=== PATIENT | male | born 1945 | race African-American/Black ===

== ENCOUNTER → 2016-09-09 | Outpatient (CLI) | payer OTHER ==
[~2016-09-09] MED LIST: ASCO500T PO; CYAN1000VL IM; DILT120C57 PO; DRIS50002 PO; FERR5MLUD PO; HYZA50TA2 PO; LOSA100T37 PO; METF1000 PO; OMEP20CA3 PO; PYRI25TA3 PO; SIMV20TA2 PO
[2016-09-09 15:41] LABS: ANION GAP 7 MEQ/L (8-16); BLOOD UREA NITROGEN 33 MG/DL (7-18); CALCIUM LEVEL 8.6 MG/DL (8.8-10.2); CARBON DIOXIDE LEVEL 30 MEQ/L (21-32); CHLORIDE LEVEL 105 MEQ/L (98-107); CREATININE FOR GFR 1.41 MG/DL (0.70-1.30); GLOMERULAR FILTRATION RATE > 60.0 (>49); GLUCOSE, FASTING 229 MG/DL (80-110); SODIUM LEVEL 142 MEQ/L (136-145)
== END ==
LOC: M LAB 14:26
PROVIDERS: ATTEND Nurse Practitioner Women's Health
DX: I10 Essential (primary) hypertension (principal); R97.20 Elevated prostate specific antigen [PSA]

== ENCOUNTER → 2016-09-11 | Outpatient (CLI) | payer OTHER ==
--- NOTE | 2016-09-12 10:21 | REP ---
Multiparametric prostate MRI without and with IV gadolinium: History: Elevated PSA. Comparisons: May 25, 2015. TECHNIQUE: Using a phased array surface coil, small field of view imaging was acquired using T2-weighted scans in the axial, coronal, and sagittal imaging planes. Small field of view diffusion-weighted sequences are acquired. Small field of view axial T1-weighted scans are acquired dynamically after the intravenous administration of 18 mL of ProHance. Prostate MRI findings: There is no evidence of skeletal metastatic disease or pelvic or inguinal lymphadenopathy. 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 This appears unchanged. Urinary bladder duncan are smooth. Seminal vesicles remain unremarkable. There is nodular enlargement of the central gland in the prostate. Prostate glandular dimensions are 5.7 x 4.4 x 5.7 cm. Calculated glandular volume is 66.12 ml. This is quite similar to the prior study. There are four focal lesions identified on multiparametric MRI scanning of the prostate as outlined to follow: Lesion #1 is in the left apical transition zone measuring 2.0 x 1.3 x 1.3 cm, 2.37 ml. This is characterized by a discrete homogeneous low signal intensity on T2-weighted scans with focal areas of reduced ADC and a type 3 enhancement curve. Clinically significant cancer is equivocal. Lesion #2 is in the left base transition zone measuring 2.1 x 1.8 x 1.0 cm, 1.69 ml volume. This is also discrete homogeneous low signal intensity focus on T2-weighted scans. It has intermediate diffusion weighted characteristics and a type 3 enhancement curve. Clinically significant cancer is equivocal. Lesion #3 is in the right mid anterior peripheral zone and right mid anterior transition zone measuring 2.0 x 1.2 x 1.0 cm, calculated volume 1.26 ml. It is a homogeneous low T2 signal intensity focus confined to the prostate with no reduction in ADC and a type 2 enhancement curve. Clinically significant cancer is equivocal. Lesion 4 is located in the left mid posterior transition zone with a calculated volume of 1.29 ml and dimensions of 1.8 x 1.4 x 1.0 cm. It is low signal intensity discrete focus on T2-weighted scans. Intermediate diffusion-weighted characteristics and type 3 enhancement curve. These targets are similar but not identical to those outlined on the May 25, 2015 study. Impression: 1. 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 2. Enlarged multinodular prostate gland. There are four targets identified on multiparametric prostate MR. These are outlined and submitted for MR ultrasound fusion, biopsy consideration. No extraprostatic involvement or evidence of bony metastatic disease. Signed by Felix Madrigal MD 09/12/2016 12:01 P
== END ==
LOC: M RAD 17:05
PROVIDERS: ATTEND Urology
DX: R97.20 Elevated prostate specific antigen [PSA] (principal); M87.051 Idiopathic aseptic necrosis of right femur

== ENCOUNTER → 2016-09-15 | Outpatient (CLI) | payer OTHER ==
[~2016-09-15] MED LIST changes: -DILT120C57 PO; +DILT120C82 PO; +JARD1TAB3 PO; +LOSA25TA8 PO; +OSEL75CA PO; +PYRI50TA2 PO
--- NOTE | 2016-09-15 11:45 | REP ---
Prostate sonography: History: Elevated PSA. MR ultrasound fusion biopsy. Sonographic findings: Trans rectal prostate sonography demonstrates unremarkable seminal vesicles. Prostate gland is heterogeneously enlarged with calcifications and cystic changes noted. Glandular dimensions are measured at 5.6 x 4.7 x 5.6 cm with a calculated glandular volume of 77.1 ml. Transrectal sonographic guidance provided to Dr. Quintero who performed trans rectal ultrasound guided needle biopsy procedure . Signed by Felix Madrigal MD 09/15/2016 11:36 A
== END | disposition home or self-care (01) ==
LOC: M SMT PRO 08:24
PROVIDERS: ATTEND Urology
DX: R97.20 Elevated prostate specific antigen [PSA] (principal)
CPT/HCPCS: 55700; 76872; 76942; 88344; G0416

== ENCOUNTER 2016-09-20 18:30 | Inpatient (IN) | payer OTHER ==
[~2016-09-20] VITALS: Ht 185.4 cm; Wt 90.0 kg
[~2016-09-20 18:30] MED LIST changes: -JARD1TAB3 PO; -LOSA25TA8 PO; -OSEL75CA PO; -PYRI50TA2 PO
[2016-09-20 19:57] LABS: BASO % 0.6 % (0.0-1.0); EOS % 1.1 % (0.0-3.0); LARGE UNSTAINED CELL # 0.1 K/mm3 (0.0-0.4); LARGE UNSTAINED CELL % 3.8 % (0.0-4.0); LYMPH # 1.1 K/mm3 (1.5-4.5); MEAN CORPUSCULAR HEMOGLOBIN 32.1 pg (27.0-33.0); MEAN CORPUSCULAR HGB CONC 33.5 g/dl (32.0-36.5); MEAN CORPUSCULAR VOLUME 95.7 fl (80.0-96.0); MONO # 0.5 K/mm3 (0.0-0.8); MONO % 16.3 % (0.0-5.0); NEUTROPHILS # 1.4 K/mm3 (1.8-7.7); NEUTROPHILS % 45.1 % (36.0-66.0); PLATELET COUNT, AUTOMATED 126 k/mm3 (150-450); RED CELL DISTRIBUTION WIDTH 12.3 % (11.5-14.5)
--- NOTE | 2016-09-20 20:00 | REPUSA ---
CLINICAL HISTORY: Syncope. TECHNIQUE: Multiple axial CT images were obtained through the brain without IV contrast material. COMMENTS: There is normal configuration of sella turcica. There are no intra or extra-axial collections. There is no mass effect or midline shift. There is no evidence of hematoma formation. No hydrocephalus is p resent. The ventricles are symmetrical. Bilateral basal ganglia calcifications are present. There is diffuse age-appropriate cerebellar and cerebral atrophy with proportionally dilated ventricl es and cortical sulci. There are bilateral periventricular and subcortical white matter hypolucencies compatible with mild c hronic microvascular disease. Otherwise, no significant focal abnormalities are seen either in the posterior fossa or supratentoria l compartment. IMPRESSION: 1. Age-appropriate cerebellar and cerebral atrophy. 2. Mild chronic microvascular disease. 3. No evidence of acute intracranial pathology. Thank you for your kind referral of this patient.
[2016-09-20 20:19] LABS: ANION GAP 9 MEQ/L (8-16); BLOOD UREA NITROGEN 38 MG/DL (7-18); CALCIUM LEVEL 7.9 MG/DL (8.8-10.2); CARBON DIOXIDE LEVEL 29 MEQ/L (21-32); CHLORIDE LEVEL 104 MEQ/L (98-107); GLOMERULAR FILTRATION RATE 51.8 (>49); GLUCOSE, FASTING 147 MG/DL (80-110); POTASSIUM SERUM 3.6 MEQ/L (3.5-5.1); SODIUM LEVEL 142 MEQ/L (136-145)
[2016-09-20] MEDS ORDERED: PYRI50TA2 PO (21:49)
[2016-09-20] MEDS ORDERED: JARD1TAB3 PO (21:49)
[2016-09-20] MEDS ORDERED: NS 1,000 ML IV SCH (21:50)
[2016-09-20] MEDS ORDERED: DEXTROSE 50% 50 ML SYRINGE IV PRN (22:00)
[2016-09-20] MEDS ORDERED: GLUCOSE 4 GM CHEW TABLET PO PRN (22:00)
[2016-09-20] MEDS ORDERED: GLUCAGON FOR INJ 1 MG VIAL (J1610) SC PRN (22:00)
[2016-09-20] MEDS ORDERED: ACETAMINOPHEN TAB 650MG DOSE (2X325MG) PO PRN (22:00)
[2016-09-20] MEDS ORDERED: ONDANSETRON 4MG/2ML VIAL (J2405) IV PRN (22:00)
[2016-09-20 22:18] LABS: ALBUMIN 3.3 GM/DL (3.2-5.2); ALKALINE PHOSPHATASE 66 U/L (45-117); ALT/SGPT 38 U/L (12-78); AST/SGOT 47 U/L (15-37); BILIRUBIN,DIRECT 0.2 MG/DL (0.0-0.2); BILIRUBIN,TOTAL 0.8 MG/DL (0.2-1.0); MAGNESIUM LEVEL 2.4 MG/DL (1.8-2.4); TOTAL PROTEIN 6.6 GM/DL (6.4-8.2)
[2016-09-20 22:34] LABS: REASON FOR REVIEW PANCYTOPENIA
[2016-09-20 22:43] VITALS: BP 120/58
--- NOTE | 2016-09-20 22:43 | EDDOCDS ---
Nurse's Notes [facility] Name: Ronnell Smallwood Age: 71 yrs Sex: Male : 1945 Arrival Date: 09/20/2016 Time: 18:30 Bed 11 Private MD: Annel Chester A Diagnosis: Syncope and collapse;Hypotension;Pancytopenia Presentation: 09/20 18:36 Presenting complaint: Patient states: Syncopal episode at home at 1430 today c/o pain mlb1 left knee. Adult Sepsis Screening: The patient does not have new or worsening altered mentation. Patient's respiratory rate is less than 22. Systolic blood pressure is greater than 100. Patient has a qSOFA score of 0- Negative Sepsis Screen. Suicide/Homicide risk assessment- the patient denies having any suicidal and/or homicidal ideations and does not present with any other emotional, behavioral or mental health complaints. 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 Transition of care: patient was not received from another setting of care. 18:36 Acuity: ANGEL Level 3 mlb1 18:36 Method Of Arrival: Walkin/Carried/Asstd mlb1 Triage Assessment: 18:39 General: Appears in no apparent distress, Behavior is appropriate for age, cooperative. mlb1 Pain: Location: lateral aspect of left knee Pain currently is 8 out of 10 on a pain scale. Neurological: Level of Consciousness is awake, alert, Oriented to person, place, time. Historical: - Allergies: no known allergies; - Home Meds: 1. aspirin 81 mg Oral TbEC once daily on hold 2. Drisdol 50,000 unit Oral cap every 2 weeks 3. Hyzaar 100-12.5 mg Oral tab 1 tab once daily 4. Tiazac 120 mg Oral cpER 1 cap once daily 5. vitamin b12 inj monthly 6. Vitamin B-6 100 mg Oral tab - PMHx: Anemia; Diabetes - NIDDM: controlled; Hypertension; Pyelonephritis; - PSHx: repair of stomach ulcers; - Social history: Smoking status: Patient states former smoker of tobacco. No barriers to communication noted, The patient speaks fluent Bhutanese, Speaks appropriately for age. - Family history: Not pertinent. - : The pt / caregiver states he / she is not on anticoagulants. Home medication list is obtained from the patient. - Exposure Risk Screening:: None identified. Screenin:41 Screening information is obtained from the patient. Fall risk: No risks identified. kas2 Assistance ADL's: requires no assistance with activities of daily living. Abuse/DV Screen: The patient / caregiver reports he/she is: not in a situation that causes fear, pain or injury. Nutritional screening: No deficits noted. Advance Directives: Currently, there is no health care proxy. There is no active DNR order. There is no living will. There is no Power of Screen Repairer Crusher. home support is adequate. Assessment: 19:35 General: Patient gone to CT scan via stretcher with tech.. kas2 19:40 General: Appears in no apparent distress, comfortable, well nourished, well groomed, kas2 Behavior is appropriate for age, cooperative. Pain: Denies pain. Neurological: Level of Consciousness is awake, alert, Oriented to person, place, time, Food Service Sales Representatives are equal bilaterally Moves all extremities. Speech is normal, Facial symmetry appears normal, Pupils are PERRLA. Cardiovascular: Capillary refill < 3 seconds Heart tones S1 S2 present Rhythm is sinus rhythm No ectopy. Respiratory: Airway is patent Respiratory effort is even, unlabored, Respiratory pattern is regular, symmetrical, Breath sounds are clear bilaterally. Derm: Skin is intact, is healthy with good turgor, Skin is dry, Skin temperature is warm. 20:14 General:. kas2 20:15 General: Patient back from CT scan via stretcher with tech. Resettled in bed. Patient kas2 denies pain or discomfort at this time. No apparent distress. Family at bedside. Call preciado within reach. Will continue to monitor.. 21:25 General: Patient laying in bed with family at bedside. No apparent distress noted. kas2 Patient denies pain or discomfort at this time. Airway patent and respiratory pattern even and unlabored. Call preciado within reach. Will continue to monitor.. 22:13 General: Appears in no apparent distress, comfortable, Behavior is appropriate for age, kas2 cooperative. Pain: Denies pain. Neurological: Level of Consciousness is awake, alert, Oriented to person, place, time. Cardiovascular: Capillary refill < 3 seconds Heart tones S1 S2 present Rhythm is sinus rhythm No ectopy. Respiratory: Airway is patent Respiratory effort is even, unlabored, Respiratory pattern is regular, symmetrical, Breath sounds are clear bilaterally. Derm: Skin is intact, is healthy with good turgor, Skin is dry, Skin temperature is warm. Vital Signs: 18:32 BP 95 / 59; Pulse 87; Resp 18 S; Temp 98.6(O); Pulse Ox 95% on R/A; Weight 92.99 kg gr2 (R); Height 6 ft. 1 in. (185.42 cm) (R); Pain 7/10; 18:42 BP 100 / 56 (auto/); kas2 18:45 Pulse 80 MON; Pulse Ox 95% ; kas2 18:45 Resp 18; Temp 98.2(O); Pain 0/10; kas2 18:57 BP 110 / 58 (auto/); kas2 18:57 Pulse 84 MON; Pulse Ox 93% ; kas2 19:12 BP 112 / 60 (auto/); kas2 19:12 Pulse 88 MON; Pulse Ox 96% ; kas2 19:27 BP 108 / 61 (auto/); kas2 19:27 Pulse 82 MON; Pulse Ox 96% ; kas2 19:42 BP 99 / 50 (auto/); kas2 19:42 Pulse 84 MON; Pulse Ox 94% ; kas2 19:57 BP 100 / 59 (auto/); kas2 19:57 Pulse 80 MON; Pulse Ox 93% ; kas2 20:12 BP 98 / 54 RA Supine; Pulse 77; Resp 18; Temp 96.2; Pulse Ox 92% on R/A; Pain 0/10; kas2 20:12 BP 83 / 53 RA Sitting; Pulse 86; Resp 18; Pulse Ox 94% on R/A; kas2 20:12 BP 87 / 54 RA Standing; Pulse 95; Resp 18; Pulse Ox 97% on R/A; kas2 20:12 BP 101 / 60 (auto/); kas2 20:12 Pulse 76 MON; Pulse Ox 93% ; kas2 20:27 BP 101 / 59 (auto/); kas2 20:27 Pulse 74 MON; Pulse Ox 99% ; kas2 20:42 BP 101 / 59 (auto/); kas2 20:42 Pulse 74 MON; Pulse Ox 92% ; kas2 20:57 BP 106 / 58 (auto/); kas2 20:57 Pulse 74 MON; Pulse Ox 96% ; kas2 21:12 BP 111 / 61 (auto/); kas2 21:12 Pulse 74 MON; Pulse Ox 95% ; kas2 21:27 BP 113 / 62 (auto/); kas2 21:27 Pulse 76 MON; Pulse Ox 96% ; kas2 21:42 BP 113 / 59 (auto/); kas2 21:42 Pulse 78 MON; Pulse Ox 98% ; kas2 21:57 BP 117 / 66 (auto/); kas2 21:57 Pulse 78 MON; Pulse Ox 98% ; kas2 22:12 BP 107 / 59 (auto/); kas2 22:12 Pulse 78 MON; Pulse Ox 96% ; kas2 22:15 BP 107 / 59; Pulse 78; Resp 18; Temp 97.9; Pulse Ox 98% on R/A; Pain 0/10; kas2 18:32 Body Mass Index 27.05 (92.99 kg, 185.42 cm) gr2 Vitals: 18:32 Log In Time: September 20, 2016 at 18:32. RN notified that patient meets Red Flag gr2 criteria. ED Course: 18:32 Patient visited by Gallito De Leon. gr2 18:32 Annel Chester is Private Physician. gr2 18:32 Patient moved to Waiting gr2 18:34 Patient visited by Gallito De Leon. gr2 18:34 Patient moved to Pre RCE gr2 18:35 Patient visited by Ammon Crane, MAGED. mlb1 18:37 Triage Initiated mlb1 18:39 Patient visited by Ammon Crane, RN. mlb1 18:40 Isaura Messer,RN is Primary Nurse. mlb1 18:40 Patient moved to 11 mlb1 18:59 Esther Elias,MAGED is Primary Nurse. kas2 19:05 Patient visited by Sukhwinder Hernandez PCA. jmv 19:05 EKG done. (by ED staff). Reviewed by Oz SANTORO. jmv 19:06 Patient visited by Sukhwinder Hernandez PCA. jmv 19:18 Bam Menard DO is Attending Physician. mm11 19:18 Patient visited by Bam Menard DO. mm11 19:31 Patient visited by Bam Menard DO. mm11 19:38 Basic Metabolic Profile Sent. kas2 19:38 CBC with Diff Sent. kas2 19:38 Cardiac Injury Profile Sent. kas2 19:38 Thyroid Stimulating Hormone Sent. kas2 19:39 Troponin Sent. kas2 19:40 [facility] Payment Agreement was scanned into [employer] and attached to record. zo 19:41 Patient visited by Esther Elias RN. kas2 19:41 Inserted saline lock: 20 gauge in right forearm and blood collected. The patient kas2 tolerated the procedure well. No procedures done that require assistance. 19:44 Patient name changed from Ronnell\S\\S\Chaple\S\ to Ronnell\S\ \S\Chaple. EDMS 20:16 Patient visited by Esther Elias RN. kas2 20:37 Urinalysis Sent. kas2 20:37 Urine Culture Sent. kas2 20:42 CT Head Without Contrast Returned. EDMS 21:12 Patient visited by Esther Elias RN. kas2 21:15 Patient visited by Esther Elias RN. kas2 21:18 Sebastien Santana MD is Hospitalizing Provider. mm11 21:44 Patient visited by Esther Elias RN. kas2 22:19 Patient visited by Esther Elias RN. kas2 22:29 The patient / caregiver is instructed regarding the plan of care and ED course. kas2 22:31 Patient visited by Esther Elias RN. kas2 Administered Medications: 20:45 Drug: NS 0.9% 1000 ml [sodium chloride 0.9 % intravenous solution] Route: IV; Rate: kas2 bolus; Site: right forearm; Order Results: Lab Order: Fingerstick Blood Sugar; SPEC'M 09/20/16 18:52 Test: BEDSIDE GLUCOSE; Value: 145; Range: 80-115; Abnormal: Above high normal; Units: MG/DL; Status: F Lab Order: Basic Metabolic Profile; SPEC'M 09/20/16 19:20 Test: GLUCOSE, FASTING; Value: 147; Range: 80-110; Abnormal: Above high normal; Units: MG/DL; Status: F Test: BLOOD UREA NITROGEN; Value: 38; Range: 7-18; Abnormal: Above high normal; Units: MG/DL; Status: F Test: CREATININE FOR GFR; Value: 1.70; Range: 0.70-1.30; Abnormal: Above high normal; Units: MG/DL; Status: F Test: GLOMERULAR FILTRATION RATE; Value: 51.8; Range: >49; Status: F Test: SODIUM LEVEL; Value: 142; Range: 136-145; Units: MEQ/L; Status: F Test: POTASSIUM SERUM; Value: 3.6; Range: 3.5-5.1; Units: MEQ/L; Status: F Test: CHLORIDE LEVEL; Value: 104; Range: 98-107; Units: MEQ/L; Status: F Test: CARBON DIOXIDE LEVEL; Value: 29; Range: 21-32; Units: MEQ/L; Status: F Test: ANION GAP; Value: 9; Range: 8-16; Units: MEQ/L; Status: F Test: CALCIUM LEVEL; Value: 7.9; Range: 8.8-10.2; Abnormal: Below low normal; Units: MG/DL; Status: F Test Note: ; Units are mL/min/1.73 m2 Chronic Kidney Disease Staging per NKF: Stage I & II GFR >=60 Normal to Mildly Decreased Stage III GFR 30-59 Moderately Decreased Stage IV GFR 15-29 Severely Decreased Stage V GFR <15 Very Little GFR Left ESRD GFR <15 on SKI MOLDER Test: AST/SGOT; Range: 15-37; Units: U/L; Status: I Test: ALT/SGPT; Range: 12-78; Units: U/L; Status: I Test: ALKALINE PHOSPHATASE; Range: 45-117; Units: U/L; Status: I Test: BILIRUBIN,TOTAL; Range: 0.2-1.0; Units: MG/DL; Status: I Test: BILIRUBIN,DIRECT; Range: 0.0-0.2; Units: MG/DL; Status: I Test: TOTAL PROTEIN; Range: 6.4-8.2; Units: GM/DL; Status: I Test: ALBUMIN; Range: 3.2-5.2; Units: GM/DL; Status: I Test: ALBUMIN/GLOBULIN RATIO; Range: 1.00-1.93; Status: I Lab Order: CBC with Diff; SPEC'M 09/20/16 19:20 Test: WHITE BLOOD COUNT; Value: 3.0; Range: 4.0-10.0; Abnormal: Below low normal; Units: K/mm3; Status: F Test: RED BLOOD COUNT; Value: 3.74; Range: 4.30-6.10; Abnormal: Below low normal; Units: M/mm3; Status: F Test: HEMOGLOBIN; Value: 12.0; Range: 14.0-18.0; Abnormal: Below low normal; Units: g/dl; Status: F Test: HEMATOCRIT; Value: 35.8; Range: 42.0-52.0; Abnormal: Below low normal; Units: %; Status: F Test: MEAN CORPUSCULAR VOLUME; Value: 95.7; Range: 80.0-96.0; Units: fl; Status: F Test: MEAN CORPUSCULAR HEMOGLOBIN; Value: 32.1; Range: 27.0-33.0; Units: pg; Status: F Test: MEAN CORPUSCULAR HGB CONC; Value: 33.5; Range: 32.0-36.5; Units: g/dl; Status: F Test: RED CELL DISTRIBUTION WIDTH; Value: 12.3; Range: 11.5-14.5; Units: %; Status: F Test: PLATELET COUNT, AUTOMATED; Value: 126; Range: 150-450; Abnormal: Below low normal; Units: k/mm3; Status: F Test: NEUTROPHILS %; Value: 45.1; Range: 36.0-66.0; Units: %; Status: F Test: LYMPH %; Value: 33.0; Range: 24.0-44.0; Units: %; Status: F Test: MONO %; Value: 16.3; Range: 0.0-5.0; Abnormal: Above high normal; Units: %; Status: F Test: EOS %; Value: 1.1; Range: 0.0-3.0; Units: %; Status: F Test: BASO %; Value: 0.6; Range: 0.0-1.0; Units: %; Status: F Test: LARGE UNSTAINED CELL %; Value: 3.8; Range: 0.0-4.0; Units: %; Status: F Test: NEUTROPHILS #; Value: 1.4; Range: 1.8-7.7; Abnormal: Below low normal; Units: K/mm3; Status: F Test: LYMPH #; Value: 1.1; Range: 1.5-4.5; Abnormal: Below low normal; Units: K/mm3; Status: F Test: MONO #; Value: 0.5; Range: 0.0-0.8; Units: K/mm3; Status: F Test: EOS #; Value: 0.0; Range: 0.0-0.50; Units: K/mm3; Status: F Test: BASO #; Value: 0.0; Range: 0.0-0.2; Units: K/mm3; Status: F Test: LARGE UNSTAINED CELL #; Value: 0.1; Range: 0.0-0.4; Units: K/mm3; Status: F Lab Order: Cardiac Injury Profile; [facility] 09/20/16 19:20 Test: CPK CREATINE PHOSPHOKINASE; Value: 462; Range: 39-308; Abnormal: Above high normal; Units: U/L; Status: F Test: CK-MB VALUE MASS; Value: 2.5; Range: 0.0-3.6; Units: NG/ML; Status: F Test: MB/CK RELATIVE INDEX; Value: 0.54; Range: < OR =4; Status: F Test Note: ; DIAGNOSIS CRITERIA MMB ng/ml Relative Index (RI) NON-AMI < or = 5 N/A [place] > 5 < or = 4 AMI > 5 > 4 Lab Order: Thyroid Stimulating Hormone; [facility] 09/20/16 19:20 Test: THYROID STIMULATING HORMONE; Value: 0.770; Range: 0.358-3.740; Units: uIU/ML; Status: F Lab Order: Troponin; [facility] 09/20/16 19:20 Test: TROPONIN I; Value: < 0.02; Range: < 0.10; Units: NG/ML; Status: F Test Note: ; Troponin I Reference Interval for [place] LOCI: 99th Percentile= 0.00-0.045 ng/ml Risk Stratification: <= 0.10 ng/ml Decreased Risk for Adverse Clinical Events. 0.10-1.50 ng/ml Increased Risk for Adverse Clinical Events. Evaluation of additional criterion and/or repeat testing in 2-6 hours is suggested to rule out myocardial damage. >= 1.50 ng/ml Indicative of Myocardial Injury. Lab Order: Urinalysis; [facility] 09/20/16 20:36 Test: APPEARANCE, URINE; Value: CLEAR; Range: CLEAR; Status: F Test: COLOR, URINE; Value: YELLOW; Range: YELLOW; Status: F Test: PH,URINE; Value: 5.0; Range: 5.0-9.0; Units: UNITS; Status: F Test: SPECIFIC GRAVITY URINE AUTO; Value: 1.012; Range: 1.002-1.035; Status: F Test: PROTEIN, URINE AUTO; Value: NEGATIVE; Range: NEGATIVE; Units: mg/dL; Status: F Test: GLUCOSE, URINE (UA) AUTO; Value: 3+; Range: NEGATIVE; Abnormal: Above high normal; Units: mg/dL; Status: F Test: KETONE, URINE AUTO; Value: NEGATIVE; Range: NEGATIVE; Units: mg/dL; Status: F Test: UROBILINOGEN, URINE AUTO; Value: 0.2; Range: 0.0-2.0; Units: mg/dL; Status: F Test: BILIRUBIN, URINE AUTO; Value: NEGATIVE; Range: NEGATIVE; Status: F Test: NITRITE, URINE AUTO; Value: NEGATIVE; Range: NEGATIVE; Status: F Test: LEUKOCYTE ESTERASE, URINE AUTO; Value: NEGATIVE; Range: NEGATIVE; Status: F Test: BLOOD, URINE BLOOD; Value: 1+; Range: NEGATIVE; Abnormal: Above high normal; Status: F Test: WBC, URINE AUTO; Value: 1; Range: 0-3; Units: /HPF; Status: F Test: RBC, URINE AUTO; Value: 3; Range: 0-3; Units: /HPF; Status: F Test: BACTERIA, URINE AUTO; Value: NEGATIVE; Range: NEGATIVE; Status: F Test: SQUAMOUS EPITHELIAL CELL UR AU; Value: 0; Range: 0-6; Units: /HPF; Status: F Test: MUCUS, URINE; Value: SMALL; Range: NEGATIVE; Status: F Test: HYALINE CAST, URINE AUTO; Value: 0; Range: 0-1; Units: /LPF; Status: F Lab Order: Hemoglobin A1c; SPEC'M 09/20/16 19:20 Test: HEMOGLOBIN A1c; Value: 7.5; Range: 4.5-6.2; Abnormal: Above high normal; Units: %; Status: F Test: ESTIMATED AVERAGE GLUCOSE; Value: 169; Range: 60-110; Abnormal: Above high normal; Units: MG/DL; Status: F Lab Order: LIVER PROFILE; SPEC'M 09/20/16 19:20 Test: AST/SGOT; Value: 47; Range: 15-37; Abnormal: Above high normal; Units: U/L; Status: F Test: ALT/SGPT; Value: 38; Range: 12-78; Units: U/L; Status: F Test: ALKALINE PHOSPHATASE; Value: 66; Range: 45-117; Units: U/L; Status: F Test: BILIRUBIN,TOTAL; Value: 0.8; Range: 0.2-1.0; Units: MG/DL; Status: F Test: BILIRUBIN,DIRECT; Value: 0.2; Range: 0.0-0.2; Units: MG/DL; Status: F Test: TOTAL PROTEIN; Value: 6.6; Range: 6.4-8.2; Units: GM/DL; Status: F Test: ALBUMIN; Value: 3.3; Range: 3.2-5.2; Units: GM/DL; Status: F Test: ALBUMIN/GLOBULIN RATIO; Value: 1.00; Range: 1.00-1.93; Status: F Lab Order: MAGNESIUM LEVEL; SPEC'M 09/20/16 19:20 Test: MAGNESIUM LEVEL; Value: 2.4; Range: 1.8-2.4; Units: MG/DL; Status: F Lab Order: PATHOLOGIST REVIEW COMPREHENSI; SPEC'M 09/20/16 19:20 Test: SLIDE REVIEW; Value: Report; Status: F Test: SOURCE; Value: PERIPHERAL SMEAR; Status: F Test: REASON FOR REVIEW; Value: PANCYTOPENIA; Status: F Test Note: ; Slide and/or specimen referred to Pathologist for review. Results of the review are located in the EMR Pathology module under Peripheral Smear when completed. Radiology Order: CT Head Without Contrast Test: CT Head Without Contrast REASON FOR EXAMINATION: Syncope; ; CLINICAL HISTORY: Syncope.; TECHNIQUE: Multiple axial CT images were obtained through the brain without IV contrast material.; COMMENTS:; There is normal configuration of sella turcica. There are no intra or extra-axial collections. There; is no mass effect or midline shift. There is no evidence of hematoma formation. No hydrocephalus is p; resent. The ventricles are symmetrical. Bilateral basal ganglia calcifications are present.; There is diffuse age-appropriate cerebellar and cerebral atrophy with proportionally dilated ventricl; es and cortical sulci.; There are bilateral periventricular and subcortical white matter hypolucencies compatible with mild c; hronic microvascular disease.; Otherwise, no significant focal abnormalities are seen either in the posterior fossa or supratentoria; l compartment.; IMPRESSION:; 1. Age-appropriate cerebellar and cerebral atrophy.; 2. Mild chronic microvascular disease.; 3. No evidence of acute intracranial pathology.; Thank you for your kind referral of this patient.; ; ; Outcome: 21:18 Decision to Hospitalize by Provider. mm11 22:29 Discharge Assessment: patient administered narcotics - no. The following High Risk [facility] Discharge criteria are identified: None. Admitted to PCU accompanied by nurse, accompanied by tech, via stretcher, on monitor, with chart. Condition: good Condition: stable Condition: improved. CT Study completed. Property :Personal belongings accompany Pt. 22:42 [address] [facility] ED[address] [facility] Signatures: Dispatcher [employer] EDMS Ammon Crane RN RN mlb1 Ann-Marie Escamilla Matthew, DO DO mm11 Bhavani Kline RN RN sls1 Gallito De Leon gr2 Esther EliasRN RN kas2 Sukhwinder Hernandez, CAR BARN LABORER CAR BARN LABORER jmv Corrections: (The following items were deleted from the chart) 19:06 19:05 EKG done. (by ED staff). dayne oscar MTDD
--- NOTE | 2016-09-20 22:43 | EDDOCDS ---
Physician Documentation [facility] Name: Ronnell Smallwood Age: 71 yrs Sex: Male : 1945 Arrival Date: 09/20/2016 Time: 18:30 Bed 11 Private MD: Annel Chester A Disposition: 09/20/16 21:18 Hospitalization ordered by Sebastien Santana for Inpatient Admission. Preliminary diagnosis are Syncope and collapse, Hypotension, Pancytopenia. - Bed requested for PCU. - Status is Inpatient Admission. sls1 - Condition is Stable. - Problem is an acute exacerbation. - Symptoms have improved. Historical: - Allergies: no known allergies; - Home Meds: 1. aspirin 81 mg Oral TbEC once daily on hold 2. Drisdol 50,000 unit Oral cap every 2 weeks 3. Hyzaar 100-12.5 mg Oral tab 1 tab once daily 4. Tiazac 120 mg Oral cpER 1 cap once daily 5. vitamin b12 inj monthly 6. Vitamin B-6 100 mg Oral tab - PMHx: Anemia; Diabetes - NIDDM: controlled; Hypertension; Pyelonephritis; - PSHx: repair of stomach ulcers; - Social history: Smoking status: Patient states former smoker of tobacco. No barriers to communication noted, The patient speaks fluent [place], Speaks appropriately for age. - Family history: Not pertinent. - : The pt / caregiver states he / she is not on anticoagulants. Home medication list is obtained from the patient. - Exposure Risk Screening:: None identified. Vital Signs: 09/20 18:32 BP 95 / 59; Pulse 87; Resp 18 S; Temp 98.6(O); Pulse Ox 95% on R/A; Weight 92.99 kg / gr2 205.01 lbs (R); Height 6 ft. 1 in. (185.42 cm) (R); Pain 7/10; 18:42 BP 100 / 56 (auto/); kas2 18:45 Pulse 80 MON; Pulse Ox 95% ; kas2 18:45 Resp 18; Temp 98.2(O); Pain 0/10; kas2 18:57 BP 110 / 58 (auto/); kas2 18:57 Pulse 84 MON; Pulse Ox 93% ; kas2 19:12 BP 112 / 60 (auto/); kas2 19:12 Pulse 88 MON; Pulse Ox 96% ; kas2 19:27 BP 108 / 61 (auto/); kas2 19:27 Pulse 82 MON; Pulse Ox 96% ; kas2 19:42 BP 99 / 50 (auto/); kas2 19:42 Pulse 84 MON; Pulse Ox 94% ; kas2 19:57 BP 100 / 59 (auto/); kas2 19:57 Pulse 80 MON; Pulse Ox 93% ; kas2 20:12 BP 98 / 54 RA Supine; Pulse 77; Resp 18; Temp 96.2; Pulse Ox 92% on R/A; Pain 0/10; kas2 20:12 BP 83 / 53 RA Sitting; Pulse 86; Resp 18; Pulse Ox 94% on R/A; kas2 20:12 BP 87 / 54 RA Standing; Pulse 95; Resp 18; Pulse Ox 97% on R/A; kas2 20:12 BP 101 / 60 (auto/); kas2 20:12 Pulse 76 MON; Pulse Ox 93% ; kas2 20:27 BP 101 / 59 (auto/); kas2 20:27 Pulse 74 MON; Pulse Ox 99% ; kas2 20:42 BP 101 / 59 (auto/); kas2 20:42 Pulse 74 MON; Pulse Ox 92% ; kas2 20:57 BP 106 / 58 (auto/); kas2 20:57 Pulse 74 MON; Pulse Ox 96% ; kas2 21:12 BP 111 / 61 (auto/); kas2 21:12 Pulse 74 MON; Pulse Ox 95% ; kas2 21:27 BP 113 / 62 (auto/); kas2 21:27 Pulse 76 MON; Pulse Ox 96% ; kas2 21:42 BP 113 / 59 (auto/); kas2 21:42 Pulse 78 MON; Pulse Ox 98% ; kas2 21:57 BP 117 / 66 (auto/); kas2 21:57 Pulse 78 MON; Pulse Ox 98% ; kas2 22:12 BP 107 / 59 (auto/); kas2 22:12 Pulse 78 MON; Pulse Ox 96% ; kas2 22:15 BP 107 / 59; Pulse 78; Resp 18; Temp 97.9; Pulse Ox 98% on R/A; Pain 0/10; kas2 18:32 Body Mass Index 27.05 (92.99 kg, 185.42 cm) gr2 MDM: 18:55 ECG WITH READING ER PHYS+CARDIAG ordered. EDMS 19:06 Fingerstick Blood Sugar Ordered. EDMS 19:35 Service Assistant/Pulse Ox/q 15 min VS ordered. mm11 19:35 IV Saline Lock ordered. mm11 19:35 Orthostatic VS ordered. mm11 19:35 Rhythm Strip to chart ordered. mm11 19:35 Basic Metabolic Profile Ordered. EDMS 19:35 CBC with Diff Ordered. EDMS 19:35 Cardiac Injury Profile Ordered. EDMS 19:36 Thyroid Stimulating Hormone Ordered. EDMS 19:36 Troponin Ordered. EDMS 19:36 Urinalysis Ordered. EDMS 19:36 Urine Culture Ordered. EDMS 19:36 Chest, 1 View Ordered. EDMS 19:36 Tibia/Fibula Ordered. EDMS 19:36 CT Head Without Contrast Ordered. EDMS 19:39 Financial registration complete. zo 19:40 [facility] Payment Agreement was scanned into [facility] and attached to record. zo 20:31 Fingerstick Blood Sugar Reviewed. mm11 20:31 Basic Metabolic Profile Reviewed. mm11 20:31 CBC with Diff Reviewed. mm11 20:31 Cardiac Injury Profile Reviewed. mm11 20:31 Thyroid Stimulating Hormone Reviewed. mm11 20:31 Troponin Reviewed. mm11 20:35 NS 0.9% 1000 ml IV at bolus once ordered. mm11 21:05 Urinalysis Reviewed. mm11 21:05 CT Head Without Contrast Reviewed. mm11 21:07 BED REQUEST+ADM ordered. EDMS 21:14 Hemoglobin A1c Ordered. EDMS 21:51 Hemoglobin A1c Reviewed. mm11 21:57 Admission / Observation Status ordered. EDMS 21:57 ECHOCARD,DOPPLER/COLOR FLOW ordered. EDMS 21:57 ELECTROCARDIOGRAM ADULT ordered. EDMS 21:57 CONSISTENT CARBOHYDRATES ordered. EDMS 21:57 CBC WITH DIFFERENTIAL Ordered. EDMS 21:58 COMPLETE COMPHRENSIVE METABOLI Ordered. EDMS 21:58 MAGNESIUM LEVEL Ordered. EDMS 22:01 INFLUENZA A&B RAPID ANTIGEN Ordered. EDMS 22:03 CARDIAC MARKER PANEL Ordered. EDMS 22:03 IONIZED CALCIUM Ordered. EDMS 22:04 LIVER PROFILE Ordered. EDMS 22:05 MAGNESIUM LEVEL Ordered. EDMS 22:05 PATHOLOGIST REVIEW COMPREHENSI Ordered. EDMS 22:19 MRA BRAIN W/O CONTRAST Ordered. EDMS 22:19 MRI Brain without Contrast Ordered. EDMS Administered Medications: 20:45 Drug: NS 0.9% 1000 ml [sodium chloride 0.9 % intravenous solution] Route: IV; Rate: kas2 bolus; Site: right forearm; Signatures: Dispatcher [employer] EDGeetha Nieto RN RN Ammon Saucedo RN RN mlb1 Ann-Marie Escamilla Matthew, DO mm11 Bhavani Kline RN RN sls1 Esther Elias RN RN kas2 The chart was reviewed and I authenticate all verbal orders and agree with the evaluation and treatment provided.Corrections: (The following items were deleted from the chart) 22:02 22:01 LIVER PROFILE ordered. EDMS EDMS 22:04 22:02 MAGNESIUM LEVEL ordered. EDMS EDMS Attachments: 19:40 [facility] Payment Agreement zo MTDD
--- NOTE | 2016-09-20 23:16 | HPE ---
DATE OF ADMISSION: 09/20/2016 PRIMARY CARE PROVIDER: Annel Chester MD UROLOGIST: Werner Quintero MD CHIEF COMPLAINT: "I fell" SUMMARY OF HIS PRESENTATION: Mr. Smallwood had a cold on Sunday, went to work, was unable to go to work on Sunday and Sunday because he felt weak. He had subjective fever, cough, which he treated with [id number]-[id number]-[id number] remedies. Awoke on Sunday morning which is this morning feeling quite well. His car had been in the repair shop and he felt well enough to go get it. He has been eating and drinking apparently normally. He tends to urinate more frequently than he thinks he should. He decided to go to work today. Usually he goes to bed around 4:00 pm and gets up at 8:30 pm for his 10:00 pm shift. He went to the refrigerator to get a bottle of water. He felt a little light headed and then the next thing he knew he awoke on the floor with an open bottle of water. He does not know how long he was down. He did not remember falling. Afterwards his memory seems a little sketchy but he got onto the couch. His returned around 6:15 and he was on the couch which was unusual. Usually he would be in the bedroom at that point. He did not know what day it was and seemed a little slower than normal. He has never had an event like this happen before. He did not suffer incontinence. He did have left leg pain after the event, which hurts around his knee when he bends the knee. Around the time of the event he noted no unusual smells, sights or sounds. He has no history of seizure. He described no chest pain, no palpitation. This has never happened before. PAST MEDICAL HISTORY: Notable for: Anemia. Diabetes. Hypertension. History of pyelonephritis. History of elevated prostate level. History of kidney stones. PAST SURGICAL HISTORY: Notable for: A pair of stomach ulcers. Various urologic procedures. SOCIAL HISTORY: He quit smoking in 1991. Does not drink any alcohol. He lives in [place]. He is originally from [place]. He has been in [place] for 20 years. FAMILY HISTORY: Mother is 89, alive and well. Father who in his 60s of unknown causes. REVIEW OF SYSTEMS: No headache, no visual changes. He has had runny nose and a sore throat. He has had some cough. No chest pain. No orthopnea. No paroxysmal nocturnal dyspnea. No lower extremity edema. He has diabetes which is treated without insulin. He has had some medication changes recently. He has not filled those prescriptions yet though. 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 No abdominal pain. No changes in his bowel or bladder habits, otherwise unremarkable. PHYSICAL EXAMINATION: Blood pressure is notable for him having orthostasis based on his heart rate. Blood pressure on arrival was 95/59 with a pulse of 87. Respiratory rate 18, temperature 98.6, 95% on room air. He weighs 92.99 kg. Body mass index is 27. He is awake, appropriately interactive and pleasantly conversant although he appears somewhat tired. Head is normocephalic. Sclera are injected. Pupils are equal, round and reactive. Mucous membranes moist. He has a dental plate. Neck is supple. No cervical or supraclavicular adenopathy. Breathing is symmetrical and rested. I to E ratio is 1 to 3. There are no wheezes, rales or rhonchi. Heart is in regular rate and rhythm. Distant sounding. Normal S1, S2. Is not tachycardic. Distal pulses radius are 2+. Capillary refill is less than 2 seconds. Abdomen is soft, doughy, nontender. There is a midline incision superior to the umbilicus running to approximately the xyphoid. There is no lower extremity edema. There are no foot lesions. Sensation is grossly intact. He is moving all four extremities. Cranial nerves II through XII are grossly intact. He has normal mood and affect. White cell count is 3. Hemoglobin is 12 and platelets of 126. Sodium 142. BUN 38, creatinine 1.7, which is higher than his baseline, which is probably around 1.4. Glucose is 147. Hemoglobin A1c is 7.5. Calcium 7.9. CK 462. Troponin I less than 0.02. TSH 0.77. UA is notable for 3+ glucose, 1+ blood. Urine culture is pending. Tibia/fibula x-ray shows unusual lesions around the knee which may require further workup. Head CT was age appropriate with some mild chronic microvascular disease. Chest x-ray showed no infiltrate, mass or effusion. Lungs were clear and unchanged. EKG shows the patient to be in a sinus rhythm with QTc of 399. ASSESSMENT: This is a 71-year-old with syncopal event. The patient required two midnight hospital stay for further workup and treatment. PLAN: 1. Syncope. This has elements of both a cardiac and neurologic event. The patient took awhile to awake. At this point, he is back to his normal mentation according to his , but approximately two hours after the event he did not know the day, which would be less consistent with a cardiac event. As such, we will pursue and MRI as well as an EEG. Given his age and history, will also obtain an echocardiogram and monitor him on telemetry. Repeat a CK and troponin with the next blood draw in the morning. We will consult as necessary. 2. The patient is orthostatic, which could be the cause of his presentation as well, although once again he had a prolonged recovery time. Will hold his antihypertensive medications, give IV fluid and continue to monitor him clinically. 3. The patient had an upper respiratory tract infection. Will swab for influenza and again monitor him clinically. 4. The patient is noted to be pancytopenic. This could be the result of the a viral illness. Will get a peripheral smear and pursue other workup as viral suppression is most likely cause. 5. The patient has diabetes. Will be placed on insulin during his stay. Hemoglobin A1c is 7.5. 6. The patient has elevated PSA. 7. The patient has unusual findings on his x-ray of leg. May require followup based on the official read. 8. Deep venous thrombosis (DVT) prophylaxis will be mechanical as his platelets are lower than normal.
[2016-09-21 04:11] VITALS: BP_SYST 111; BP_SYST 116; BP_SYST 130; BP_DIAS 58; BP_DIAS 62; BP_DIAS 63
[2016-09-21 05:52] LABS: BASO % 0.3 % (0.0-1.0); EOS # 0.1 K/mm3 (0.0-0.50); EOS % 2.4 % (0.0-3.0); LARGE UNSTAINED CELL # 0.1 K/mm3 (0.0-0.4); LARGE UNSTAINED CELL % 3.3 % (0.0-4.0); LYMPH # 0.8 K/mm3 (1.5-4.5); LYMPH % 33.4 % (24.0-44.0); MEAN CORPUSCULAR HEMOGLOBIN 32.2 pg (27.0-33.0); MEAN CORPUSCULAR HGB CONC 34.8 g/dl (32.0-36.5); MEAN CORPUSCULAR VOLUME 92.6 fl (80.0-96.0); MONO # 0.3 K/mm3 (0.0-0.8); MONO % 11.4 % (0.0-5.0); NEUTROPHILS # 1.2 K/mm3 (1.8-7.7); NEUTROPHILS % 49.2 % (36.0-66.0); PLATELET COUNT, AUTOMATED 111 k/mm3 (150-450); RED CELL DISTRIBUTION WIDTH 11.2 % (11.5-14.5); WHITE BLOOD COUNT 2.4 K/mm3 (4.0-10.0)
[2016-09-21 06:04] LABS: ALBUMIN/GLOBULIN RATIO 1.03 (1.00-1.93); ALKALINE PHOSPHATASE 61 U/L (45-117); ALT/SGPT 35 U/L (12-78); ANION GAP 9 MEQ/L (8-16); AST/SGOT 38 U/L (15-37); BILIRUBIN,TOTAL 0.7 MG/DL (0.2-1.0); BLOOD UREA NITROGEN 32 MG/DL (7-18); CALCIUM LEVEL 7.5 MG/DL (8.8-10.2); CARBON DIOXIDE LEVEL 28 MEQ/L (21-32); CHLORIDE LEVEL 106 MEQ/L (98-107); CREATININE FOR GFR 1.49 MG/DL (0.70-1.30); GLOMERULAR FILTRATION RATE > 60.0 (>49); GLUCOSE, FASTING 125 MG/DL (80-110); MAGNESIUM LEVEL 2.3 MG/DL (1.8-2.4); POTASSIUM SERUM 3.3 MEQ/L (3.5-5.1); SODIUM LEVEL 143 MEQ/L (136-145); TOTAL PROTEIN 5.9 GM/DL (6.4-8.2)
--- NOTE | 2016-09-21 07:26 | REP ---
Chest, single AP view, the patient supine: Comparison is 06/24/2016. There are no infiltrates, masses or effusions. Lung vaughn are clear and unchanged. Cardiac size is normal. The dena, mediastinum, and bony thorax are unremarkable for positioning. Impression: No acute cardiopulmonary findings. Signed by Acosta Linda MD 09/20/2016 08:33 P
--- NOTE | 2016-09-21 07:27 | REP ---
Left tibia-fibula four views AP and lateral projections: There is no acute fracture or dislocation. There are serpiginous lesions in the distal femur and proximal tibia, nonspecific, possibly bone infarcts versus enchondromas. Study is otherwise unremarkable. Follow-up radionuclide bone scan or MRI might be considered. Signed by Acosta Linda MD 09/20/2016 08:36 P
[2016-09-21 08:00] VITALS: BP 106/55
[2016-09-21] MEDS: PYRIDOXINE 50 MG TAB PO SCH (08:05)
[2016-09-21] MEDS: OMEPRAZOLE 20 MG CAP PO SCH (08:05)
[2016-09-21] MEDS: HumaLOG INSULIN (NovoLOG) PER UNIT SC SCH ×3 (08:05→17:35)
--- NOTE | 2016-09-21 08:33 | ECGEPIP ---
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
--- NOTE | 2016-09-21 08:48 | ECGEPIP ---
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
[2016-09-21] MEDS ORDERED: ENOXAPARIN 40 MG/0.4 ML SYRINGE (J1650) SC SCH (09:00)
[2016-09-21] MEDS ORDERED: POTASSIUM CHLORIDE 10 MEQ SR TABLET PO ONE (09:45)
--- NOTE | 2016-09-21 10:03 | REP ---
MRI BRAIN WITHOUT CONTRAST: HISTORY: Syncope. COMPARISON: 06/01/2009. Areas of increased signal intensity on T2-weighted images are present in the periventricular and subcortical white matter and lala. This represents small vessel ischemic disease. There is no intraparenchymal hemorrhage, infarct, mass or midline shift. The ventricular system is normal in appearance. The cortical sulci are dilated consistent with minimal volume loss. There is no extracerebral collection. Mucosal thickening is present in the ethmoid and maxillary sinuses. IMPRESSION: 1. Small vessel ischemic disease. 2. Minimal volume loss. Signed by Raymond Henry MD 09/21/2016 10:05 A
--- NOTE | 2016-09-21 10:06 | REP ---
MRA BRAIN WITHOUT CONTRAST: HISTORY: Syncope. 3D [id number] MR angiography was performed at the level of the [place] of [place]. There is no aneurysm or arteriovenous malformation. Mild atherosclerotic disease involves the cavernous and supraclinoid internal carotid arteries. Major intracranial vessels are patent. The left vertebral artery is dominant. IMPRESSION: 1. There is no aneurysm or arteriovenous malformation. 2. Atherosclerotic disease as described above. Signed by Raymond Henry MD 09/21/2016 10:13 A
--- NOTE | 2016-09-21 10:53 | REP ---
Right hip: Two views. History: Injury in a fall. Findings: AP and frog-leg views of the right hip demonstrate a mottled sclerotic pattern in the femoral head suggestive of avascular necrosis of the femoral head. No flattening is seen. There is osteoarthritic spurring superolaterally on the femur and at the acetabular margins superiorly. Joint space is preserved. Periarticular soft tissues are unremarkable. There is some vascular calcification. 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 No fracture seen. Mild osteoarthritic spurring. Signed by Felix Madrigal MD 09/21/2016 03:08 P
[2016-09-21 12:00] VITALS: BP 133/61
[2016-09-21] MEDS: HEPARIN SOD (PORCINE) 5000 UNITS/ML VIAL SQ SCH ×2 (13:09→20:28)
--- NOTE | 2016-09-21 15:36 | ECHO ---
DATE OF PROCEDURE: 09/21/2016 AGE: 71 GENDER: Male HEIGHT: 73 inches WEIGHT: 198 pounds BODY SURFACE AREA: 2.14 sq m PATIENT LOCATION: Inpatient, PCU, room 3226 REFERRING PHYSICIAN: Sebastien Santana MD INDICATION: Syncope. 2-D MEASUREMENTS: RV: 3.8 cm LV: 4.7 cm Septum: 0.9 cm Posterior wall: 0.9 cm Aortic root: 3.3 cm LA: 3.2 cm LVEF: 60% DOPPLER MEASUREMENTS: AV: 1.1 m/s LVOT: 0.8 m/s LVOT diameter: 2.2 cm MV-E: 50, A: 62, EA ratio: 0.8 Early mitral deceleration time: 194 ms E prime 5.6, A prime 8.5, E/E prime ratio: 9 PV: 0.7 m/s Pulmonary artery acceleration time: 102 ms PASP: 33 mmHg IVC: 1.8 cm COMMENTS: Normal sinus rhythm without intraventricular conduction disturbance. Normal cardiac chamber sizes and left ventricle (LV) wall thickness. On real-time imaging from the parasternal and apical projections wall motion was symmetrical and normal. Slightly thickened mitral annulus, but normal leaflet thickness and excursion. Slight thickening of the subchordal papillary heads, but no pedunculated mass. Three equal sized aortic cusps with marginally thickened cusp edges, but adequate cusp separation. Normal aortic root size. No apparent intracardiac mass or pericardial effusion. Color flow Doppler study taken from the parasternal and apical projections showed no mitral, aortic, and only trace tricuspid insufficiency. Guided continuous wave Doppler of his aortic valve showed a normal peak systolic velocity against LV outflow tract obstruction. Pulsed and continuous wave Doppler of his LV inflow tract taken from the apical four-chamber projection showed normal diastolic filling velocities against mitral stenosis. There was slightly more prominent late diastolic/atrial dependent filling pattern. Degree of diastolic dysfunction was confirmed using tissue Doppler of his mitral annulus, but currently estimated mean left atrial pressure was well within normal limits. Pulsed and continuous wave Doppler of his pulmonary trunk showed a normal peak systolic velocity against right ventricle (RV) outflow tract obstruction. His pulmonary artery acceleration time was marginally abbreviated suggestive of a slightly increased pulmonary vascular resistance and perhaps very mild pulmonary hypertension. We attempted to further estimate his right ventricular systolic pressure using guided continuous wave Doppler of his tricuspid valve, but could not get a clear spectral envelope. His inferior vena cava was of normal size with normal respiratory collapse against an elevated central venous pressure. CONCLUSIONS: Unable to detect a structural or functional cardiac abnormality to account for the patient's syncopal spell. Echocardiographic findings not outside normal limits for his age.
--- NOTE | 2016-09-21 17:28 | REP ---
MRI study of the left knee without and with IV contrast: History: Lesion. Comparison TIB-fib views are from 09/20/2016. Technique: Axial, coronal, and sagittal imaging planes are utilized. T1 and T2-weighted scans are obtained in the usual fashion with and without fat saturation. MRI contrast dose: 18.5 mL of intravenous ProHance is given. Left knee MRI findings: There is a small to moderate-sized joint effusion in the left knee. No Virgen's cyst is seen. Patellar and quadriceps tendons are intact. Posterior cruciate ligament has an intact appearance. The anterior cruciate ligament is not seen consistent with an old tear. There is no evidence of medial or lateral collateral ligament disruption. There is chondromalacia mild in degree in the medial and lateral tibiofemoral compartments. An extensive degenerative tear is seen in the medial meniscus which is diminutive. No lateral meniscal tear is appreciated. Postcontrast enhanced studies shows no abnormal contrast enhancement. There is some central areas of increased T2 decreased T1 signal intensity in the cancellous bone of the distal femur and proximal tibia consistent with small areas of benign marrow change compatible with a small cysts or small enchondromas. Impression: Moderate joint effusion. Old anterior cruciate ligament tear. Tendinosis change in the posterior cruciate ligament. Small bone cyst versus benign enchondromas in the distal femur and proximal tibia. Chondromalacia and early osteoarthritis changes. Signed by Felix Madrigal MD 09/22/2016 08:29 A
--- NOTE | 2016-09-21 17:36 | REP ---
Left TIB-fib MRI without and with IV gadolinium: History: Bell lesions seen on plain radiographs. Gadolinium enhancement dose 18.5 ml of ProHance is administered. Technique: Axial T1- and T2-weighted scans were obtained. Coronal T1- and T2-weighted scans were obtained. T1 sagittal post-gadolinium enhanced images obtained. T1 axial post gadolinium enhanced images obtained. There was some motion artifacts on one or two of the sequences but the patient declined repeat imaging. Findings: There is no evidence of cortical disruption or periosteal reaction. No marrow edema is seen. There are several foci of low T1, high T2 signal in the central cancellous marrow of the distal femur and proximal tibia on the left. Similar findings are seen more extensively in the distal femur on the right. In addition, on the right there is a subchondral lesion in the lateral femoral condyle. These findings are felt to be compatible with old bone infarcts. There is no evidence of aggressive bone lesion. Contrast enhanced study shows no abnormal gadolinium enhancement. 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 These bilaterally affect the distal femur and the left tibia, both proximally and distally. Signed by Felxi Madrigal MD 09/22/2016 08:29 A
[2016-09-21 19:39] VITALS: BP 123/62
--- NOTE | 2016-09-21 20:47 | IPN ---
DATE: 09/21/2016 SUBJECTIVE: Patient seen and examined. Reported some right hip pain and also left knee pain; as per patient, might be secondary to fall. Denies any chest pain, pressure, discomfort. Denies any fevers or chills. Orthostatic hypotension has resolved, was negative. VITAL SIGNS: Temperature 96.9, pulse 76, respirations 18, blood pressure 133/61, pulse oximetry 93% on room air. LABORATORY DATA: WBC 2.4, hemoglobin and hematocrit 11.1 over 31.9, platelets 111. PHYSICAL EXAMINATION: GENERAL: Patient alert and oriented times three. In no acute distress. HEENT: Normocephalic, atraumatic. Moist mucous membranes. PULMONARY: Bilaterally clear to auscultation. CARDIAC: Regular rate and rhythm. Normal S1, S2. No murmurs detected. ABDOMEN: Soft, nontender, nondistended. Positive bowel sounds. EXTREMITIES: No edema bilateral lower extremities. NEUROLOGIC: Cranial nerves II through XII grossly intact. No focal deficits. ASSESSMENT AND PLAN: This is a 71-year-old male patient with underlying medical history of anemia, type 2 diabetes, hypertension, history of pyelonephritis, kidney stones, admitted with syncope and collapse, one episode, no previous symptoms. 1. Syncope and collapse, cardiac versus neurogenic. Followup electroencephalogram (EEG), MRI. Cardiac enzymes appreciated negative. Telemetry monitoring. Orthostatic vital signs. Intravenous (IV) fluids initially provided. Orthostatic vital signs currently negative. Withholding blood pressure medications. Echocardiogram is appreciated. Physical therapy. 2. Orthostatic cause possible medication in the setting of upper respiratory infection (URI). Holding blood pressure medications. IV fluids initially provided. Monitor blood pressure. 3. Upper respiratory infection. Influenza, respiratory panel. Continue to monitor. Followup cultures. 4. Leukopenic, possibly secondary to viral illness. Will get peripheral smears. 5. Diabetes. Insulin as per protocol. 6. Elevated prostate-specific antigen (PSA). Outpatient followup. 7. Unusual findings on the x-ray of the lesions on the left knee and right hip avascular necrosis. Will consult orthopedics, physical therapy. 8. Deep venous thrombosis (DVT) prophylaxis. Heparin subcutaneously. DISPOSITION PLANNING: Pending EEG, orthopedic consultation.
[2016-09-21] MEDS ORDERED: HumaLOG INSULIN (NovoLOG) PER UNIT SC SCH (21:00)
[2016-09-21] MEDS ORDERED: SIMVASTATIN 20 MG TAB PO SCH (21:00)
[2016-09-21 23:56] VITALS: BP 127/64
[2016-09-22 03:55] VITALS: BP_SYST 118; BP_SYST 120; BP_SYST 127; BP_DIAS 67; BP_DIAS 71
[2016-09-22 05:44] LABS: BASO % 0.6 % (0.0-1.0); EOS % 2.4 % (0.0-3.0); LARGE UNSTAINED CELL # 0.1 K/mm3 (0.0-0.4); LARGE UNSTAINED CELL % 4.1 % (0.0-4.0); LYMPH # 0.8 K/mm3 (1.5-4.5); LYMPH % 39.8 % (24.0-44.0); MEAN CORPUSCULAR HEMOGLOBIN 31.4 pg (27.0-33.0); MEAN CORPUSCULAR HGB CONC 33.5 g/dl (32.0-36.5); MEAN CORPUSCULAR VOLUME 93.7 fl (80.0-96.0); MONO # 0.2 K/mm3 (0.0-0.8); NEUTROPHILS # 0.9 K/mm3 (1.8-7.7); NEUTROPHILS % 44.1 % (36.0-66.0); PLATELET COUNT, AUTOMATED 111 k/mm3 (150-450); RED CELL DISTRIBUTION WIDTH 11.2 % (11.5-14.5); WHITE BLOOD COUNT 2.1 K/mm3 (4.0-10.0)
[2016-09-22 05:51] LABS: ALBUMIN/GLOBULIN RATIO 0.91 (1.00-1.93); ALKALINE PHOSPHATASE 71 U/L (45-117); ALT/SGPT 34 U/L (12-78); ANION GAP 8 MEQ/L (8-16); AST/SGOT 32 U/L (15-37); BILIRUBIN,TOTAL 0.6 MG/DL (0.2-1.0); BLOOD UREA NITROGEN 23 MG/DL (7-18); CARBON DIOXIDE LEVEL 28 MEQ/L (21-32); CHLORIDE LEVEL 109 MEQ/L (98-107); CREATININE FOR GFR 1.16 MG/DL (0.70-1.30); GLOMERULAR FILTRATION RATE > 60.0 (>49); GLUCOSE, FASTING 120 MG/DL (80-110); MAGNESIUM LEVEL 2.1 MG/DL (1.8-2.4); POTASSIUM SERUM 3.7 MEQ/L (3.5-5.1); SODIUM LEVEL 145 MEQ/L (136-145); TOTAL PROTEIN 6.3 GM/DL (6.4-8.2)
--- NOTE | 2016-09-22 07:34 | EEG ---
DATE OF PROCEDURE: 09/21/2016 REFERRING PHYSICIAN: Dr. Isidra Sheridan DIAGNOSIS: Syncope. EEG #: [id number]. CLINICAL HISTORY: The patient is a 71-year-old man who was admitted at [facility] after a passing out spell. He had fever and cough and took [id number] medications. This EEG was done to rule out epileptic potential. He is currently taking Prilosec, pyrodoxime, Lovenox, etc. TECHNICAL DESCRIPTION: This digital EEG was recorded by 21 scalp, ear and two EKG electrodes and was reviewed in bipolar and referential montages following reformatting in 10-20 international electrode placement system. INTERPRETATION: The patient was noted to be in awake and drowsy states during this EEG. Resting awake background consisted of well-formed posterior dominant rhythm with anterior/posterior gradient comprising of 9 Hz alpha activity measuring 15-40 microvolts in amplitude which was symmetric and reactive to eye opening. Attenuation of posterior dominant rhythm was seen during transition into drowsiness. No sleep was achieved. Hyperventilation with little effort remained unremarkable. Photic stimulation remained unremarkable. EKG revealed normal sinus rhythm. No focal, lateralizing or epileptiform abnormalities were seen. No clinical or electrographic seizures were recorded. CONCLUSION: This EEG in awake and drowsy states is within normal limits.
[2016-09-22 08:00] VITALS: BP 128/72
[2016-09-22] MEDS: HEPARIN SOD (PORCINE) 5000 UNITS/ML VIAL SQ SCH (08:14)
[2016-09-22] MEDS: HumaLOG INSULIN (NovoLOG) PER UNIT SC SCH ×2 (08:14→12:16)
[2016-09-22] MEDS: PYRIDOXINE 50 MG TAB PO SCH (08:14)
[2016-09-22] MEDS: OMEPRAZOLE 20 MG CAP PO SCH (08:14)
[2016-09-22 12:00] VITALS: BP 132/68
[2016-09-22] MEDS ORDERED: LOSA25TA8 PO (12:02)
[2016-09-22] MEDS ORDERED: OSEL75CA PO (16:31)
--- NOTE | 2016-09-22 19:54 | CR ---
DATE OF CONSULTATION: 09/22/2016 REASON FOR CONSULTATION: A fall with right hip and left knee pain with radiographic abnormalities on plain films and MRI scan. HISTORY OF THE PRESENT ILLNESS: He is a 71-year-old male who had an apparent syncopal episode and was admitted to the hospital for that and evaluated by Dr. Santana. He does not remember specifically the events, but he presented to the emergency room on 09/20/2016 with a chief complaint that he fell. His syncopal workup has been ongoing, and he is apparently ready to be discharged home. But because during the course of the evaluation of injuries of his hip and knee, he was noted to have abnormal findings on the x-ray of his right hip as well as the right knee, so subsequent MR scanning was done. After his MRI scans were completed, they called me to evaluate him. He is actually doing quite a bit better, still has some isolated soreness in the outside aspect of the left knee and sometimes he gets some pain in the posterior buttock of the right hip. He says he has had pain in the right hip for quite some time. He has had a relevant history as he had a distant injury, football related, to the left knee requiring surgery. He otherwise is still quite active. 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 His past medical history otherwise is one for diabetes, anemia, hypertension, history of pyelonephritis, history of elevated prostate-specific antigen (PSA) and kidney stones. Other relevant history: He does have sickle cell trait; I am not clear if he has sickle cell anemia. Past surgical history: He has had ulcer surgeries and urologic surgeries in the past. He quit smoking many years ago. A note from Dr. Santana's history and physical otherwise is referred to for family history, review of systems and other relevant past medical history. When I examined him, he is ambulating with a slight limp, favoring that left knee. He is alert. He is oriented. His blood pressure was 132/68 with a pulse of 81, respiration rate 18, temperature is 96.5, oxygen saturation is 97% on room air. Left knee has trace effusion and healed scar longitudinally along the medial joint line with some tenderness laterally, but there is no gross instability when I do a varus-valgus stress test. Slight increased Vikki. Slight flexion contracture. He bends back to 120 degrees. Distal neurovascular exam is normal. Right hip has some mild irritability to internal/external rotation. There is some mild tenderness over the buttock and trochanter on the right side. Distal neurovascular exam is entirely normal. His radiographic study of his right hip shows osteoarthritis, evidence of prior osteonecrosis. No acute fractures are seen. Left tibia-fibula x-ray shows bone infarcts in the distal femur and the tibia with some mild arthritis of the knee joint. MR scan is consistent with what appears to be bone infarcts in his tibia and his femur. 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 I do not detect any significant orthopedic surgical intervention type pathology that is needed presently. I would just treat this expectantly with gentle motion and followup as an outpatient in a couple of weeks to see how he responds to that. He is comfortable with that plan. 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 He is quite happy with that plan. We plan to see him in 2 or 3 weeks in my office. MERLY
--- NOTE | 2016-09-22 23:44 | EDDOCDS ---
Physician Documentation [facility] Name: Ronnell Smallwood Age: 71 yrs Sex: Male : 1945 Arrival Date: 09/20/2016 Time: 18:30 Bed 11 Private MD: Annel Chester A Disposition: 09/20/16 21:18 Hospitalization ordered by Sebastien Santana for Inpatient Admission. Preliminary diagnosis are Syncope and collapse, Hypotension, Pancytopenia. - Bed requested for PCU. - Status is Inpatient Admission. sls1 - Condition is Stable. - Problem is an acute exacerbation. - Symptoms have improved. Historical: - Allergies: no known allergies; - Home Meds: 1. aspirin 81 mg Oral TbEC once daily on hold 2. Drisdol 50,000 unit Oral cap every 2 weeks 3. Hyzaar 100-12.5 mg Oral tab 1 tab once daily 4. Tiazac 120 mg Oral cpER 1 cap once daily 5. vitamin b12 inj monthly 6. Vitamin B-6 100 mg Oral tab - PMHx: Anemia; Diabetes - NIDDM: controlled; Hypertension; Pyelonephritis; - PSHx: repair of stomach ulcers; - Social history: Smoking status: Patient states former smoker of tobacco. No barriers to communication noted, The patient speaks fluent Turkmen, Speaks appropriately for age. - Family history: Not pertinent. - : The pt / caregiver states he / she is not on anticoagulants. Home medication list is obtained from the patient. - Exposure Risk Screening:: None identified. Vital Signs: 09/20 18:32 BP 95 / 59; Pulse 87; Resp 18 S; Temp 98.6(O); Pulse Ox 95% on R/A; Weight 92.99 kg / gr2 205.01 lbs (R); Height 6 ft. 1 in. (185.42 cm) (R); Pain 7/10; 18:42 BP 100 / 56 (auto/); kas2 18:45 Pulse 80 MON; Pulse Ox 95% ; kas2 18:45 Resp 18; Temp 98.2(O); Pain 0/10; kas2 18:57 BP 110 / 58 (auto/); kas2 18:57 Pulse 84 MON; Pulse Ox 93% ; kas2 19:12 BP 112 / 60 (auto/); kas2 19:12 Pulse 88 MON; Pulse Ox 96% ; kas2 19:27 BP 108 / 61 (auto/); kas2 19:27 Pulse 82 MON; Pulse Ox 96% ; kas2 19:42 BP 99 / 50 (auto/); kas2 19:42 Pulse 84 MON; Pulse Ox 94% ; kas2 19:57 BP 100 / 59 (auto/); kas2 19:57 Pulse 80 MON; Pulse Ox 93% ; kas2 20:12 BP 98 / 54 RA Supine; Pulse 77; Resp 18; Temp 96.2; Pulse Ox 92% on R/A; Pain 0/10; kas2 20:12 BP 83 / 53 RA Sitting; Pulse 86; Resp 18; Pulse Ox 94% on R/A; kas2 20:12 BP 87 / 54 RA Standing; Pulse 95; Resp 18; Pulse Ox 97% on R/A; kas2 20:12 BP 101 / 60 (auto/); kas2 20:12 Pulse 76 MON; Pulse Ox 93% ; kas2 20:27 BP 101 / 59 (auto/); kas2 20:27 Pulse 74 MON; Pulse Ox 99% ; kas2 20:42 BP 101 / 59 (auto/); kas2 20:42 Pulse 74 MON; Pulse Ox 92% ; kas2 20:57 BP 106 / 58 (auto/); kas2 20:57 Pulse 74 MON; Pulse Ox 96% ; kas2 21:12 BP 111 / 61 (auto/); kas2 21:12 Pulse 74 MON; Pulse Ox 95% ; kas2 21:27 BP 113 / 62 (auto/); kas2 21:27 Pulse 76 MON; Pulse Ox 96% ; kas2 21:42 BP 113 / 59 (auto/); kas2 21:42 Pulse 78 MON; Pulse Ox 98% ; kas2 21:57 BP 117 / 66 (auto/); kas2 21:57 Pulse 78 MON; Pulse Ox 98% ; kas2 22:12 BP 107 / 59 (auto/); kas2 22:12 Pulse 78 MON; Pulse Ox 96% ; kas2 22:15 BP 107 / 59; Pulse 78; Resp 18; Temp 97.9; Pulse Ox 98% on R/A; Pain 0/10; kas2 18:32 Body Mass Index 27.05 (92.99 kg, 185.42 cm) gr2 MDM: 18:55 ECG WITH READING ER PHYS+CARDIAG ordered. EDMS 19:06 Fingerstick Blood Sugar Ordered. EDMS 19:35 Casework Supervisor/Pulse Ox/q 15 min VS ordered. mm11 19:35 IV Saline Lock ordered. mm11 19:35 Orthostatic VS ordered. mm11 19:35 Rhythm Strip to chart ordered. mm11 19:35 Basic Metabolic Profile Ordered. EDMS 19:35 CBC with Diff Ordered. EDMS 19:35 Cardiac Injury Profile Ordered. EDMS 19:36 Thyroid Stimulating Hormone Ordered. EDMS 19:36 Troponin Ordered. EDMS 19:36 Urinalysis Ordered. EDMS 19:36 Urine Culture Ordered. EDMS 19:36 Chest, 1 View Ordered. EDMS 19:36 Tibia/Fibula Ordered. EDMS 19:36 CT Head Without Contrast Ordered. EDMS 19:39 Financial registration complete. zo 19:40 [facility] [place] was scanned into [employer] and attached to record. zo 20:31 Fingerstick Blood Sugar Reviewed. mm11 20:31 Basic Metabolic Profile Reviewed. mm11 20:31 CBC with Diff Reviewed. mm11 20:31 Cardiac Injury Profile Reviewed. mm11 20:31 Thyroid Stimulating Hormone Reviewed. mm11 20:31 Troponin Reviewed. mm11 20:35 NS 0.9% 1000 ml IV at bolus once ordered. mm11 21:05 Urinalysis Reviewed. mm11 21:05 CT Head Without Contrast Reviewed. mm11 21:07 BED REQUEST+ADM ordered. EDMS 21:14 Hemoglobin A1c Ordered. EDMS 21:51 Hemoglobin A1c Reviewed. mm11 21:57 Admission / Observation Status ordered. EDMS 21:57 ECHOCARD,DOPPLER/COLOR FLOW ordered. EDMS 21:57 ELECTROCARDIOGRAM ADULT ordered. EDMS 21:57 CONSISTENT CARBOHYDRATES ordered. EDMS 21:57 CBC WITH DIFFERENTIAL Ordered. EDMS 21:58 COMPLETE COMPHRENSIVE METABOLI Ordered. EDMS 21:58 MAGNESIUM LEVEL Ordered. EDMS 22:01 INFLUENZA A&B RAPID ANTIGEN Ordered. EDMS 22:03 CARDIAC MARKER PANEL Ordered. EDMS 22:03 IONIZED CALCIUM Ordered. EDMS 22:04 LIVER PROFILE Ordered. EDMS 22:05 MAGNESIUM LEVEL Ordered. EDMS 22:05 PATHOLOGIST REVIEW COMPREHENSI Ordered. EDMS 22:19 MRA BRAIN W/O CONTRAST Ordered. EDMS 22:19 MRI Brain without Contrast Ordered. EDMS 09/21 08:59 T-Sheet-- Draft Copy was scanned into [employer] and attached to record. gb 08:59 Trend VS was scanned into [employer] and attached to record. gb 08:59 Radiology Report was scanned into [employer] and attached to record. gb Administered Medications: 09/20 20:45 Drug: NS 0.9% 1000 ml [sodium chloride 0.9 % intravenous solution] Route: IV; Rate: kas2 bolus; Site: right forearm; Signatures: Dispatcher [employer] EDMS Geetha Anderson RN RN Fifi Cevallos, Reg Reg Ammon Lynch RN RN mlb1 Ann-Marie Escamilla Matthew, DO DO mm11 Bhavani Kline RN RN sls1 Esther Elias RN RN kas2 The chart was reviewed and I authenticate all verbal orders and agree with the evaluation and treatment provided.Corrections: (The following items were deleted from the chart) 22:02 22:01 LIVER PROFILE ordered. EDMS EDMS 22:04 22:02 MAGNESIUM LEVEL ordered. EDMS EDMS Attachments: 19:40 [facility] Payment Agreement zo 09/21 08:59 T-Sheet-- Draft Copy gb Chart Complete MTDD
--- NOTE | 2016-09-22 23:44 | EDDOCDS ---
Physician Documentation [facility] Name: Ronnell Smallwood Age: 71 yrs Sex: Male : 1945 Arrival Date: 09/20/2016 Time: 18:30 Bed 11 Private MD: Annel Chester A Disposition: 09/20/16 21:18 Hospitalization ordered by Sebastien Santana for Inpatient Admission. Preliminary diagnosis are Syncope and collapse, Hypotension, Pancytopenia. - Bed requested for PCU. - Status is Inpatient Admission. sls1 - Condition is Stable. - Problem is an acute exacerbation. - Symptoms have improved. Historical: - Allergies: no known allergies; - Home Meds: 1. aspirin 81 mg Oral TbEC once daily on hold 2. Drisdol 50,000 unit Oral cap every 2 weeks 3. Hyzaar 100-12.5 mg Oral tab 1 tab once daily 4. Tiazac 120 mg Oral cpER 1 cap once daily 5. vitamin b12 inj monthly 6. Vitamin B-6 100 mg Oral tab - PMHx: Anemia; Diabetes - NIDDM: controlled; Hypertension; Pyelonephritis; - PSHx: repair of stomach ulcers; - Social history: Smoking status: Patient states former smoker of tobacco. No barriers to communication noted, The patient speaks fluent Finnish, Speaks appropriately for age. - Family history: Not pertinent. - : The pt / caregiver states he / she is not on anticoagulants. Home medication list is obtained from the patient. - Exposure Risk Screening:: None identified. Vital Signs: 09/20 18:32 BP 95 / 59; Pulse 87; Resp 18 S; Temp 98.6(O); Pulse Ox 95% on R/A; Weight 92.99 kg / gr2 205.01 lbs (R); Height 6 ft. 1 in. (185.42 cm) (R); Pain 7/10; 18:42 BP 100 / 56 (auto/); kas2 18:45 Pulse 80 MON; Pulse Ox 95% ; kas2 18:45 Resp 18; Temp 98.2(O); Pain 0/10; kas2 18:57 BP 110 / 58 (auto/); kas2 18:57 Pulse 84 MON; Pulse Ox 93% ; kas2 19:12 BP 112 / 60 (auto/); kas2 19:12 Pulse 88 MON; Pulse Ox 96% ; kas2 19:27 BP 108 / 61 (auto/); kas2 19:27 Pulse 82 MON; Pulse Ox 96% ; kas2 19:42 BP 99 / 50 (auto/); kas2 19:42 Pulse 84 MON; Pulse Ox 94% ; kas2 19:57 BP 100 / 59 (auto/); kas2 19:57 Pulse 80 MON; Pulse Ox 93% ; kas2 20:12 BP 98 / 54 RA Supine; Pulse 77; Resp 18; Temp 96.2; Pulse Ox 92% on R/A; Pain 0/10; kas2 20:12 BP 83 / 53 RA Sitting; Pulse 86; Resp 18; Pulse Ox 94% on R/A; kas2 20:12 BP 87 / 54 RA Standing; Pulse 95; Resp 18; Pulse Ox 97% on R/A; kas2 20:12 BP 101 / 60 (auto/); kas2 20:12 Pulse 76 MON; Pulse Ox 93% ; kas2 20:27 BP 101 / 59 (auto/); kas2 20:27 Pulse 74 MON; Pulse Ox 99% ; kas2 20:42 BP 101 / 59 (auto/); kas2 20:42 Pulse 74 MON; Pulse Ox 92% ; kas2 20:57 BP 106 / 58 (auto/); kas2 20:57 Pulse 74 MON; Pulse Ox 96% ; kas2 21:12 BP 111 / 61 (auto/); kas2 21:12 Pulse 74 MON; Pulse Ox 95% ; kas2 21:27 BP 113 / 62 (auto/); kas2 21:27 Pulse 76 MON; Pulse Ox 96% ; kas2 21:42 BP 113 / 59 (auto/); kas2 21:42 Pulse 78 MON; Pulse Ox 98% ; kas2 21:57 BP 117 / 66 (auto/); kas2 21:57 Pulse 78 MON; Pulse Ox 98% ; kas2 22:12 BP 107 / 59 (auto/); kas2 22:12 Pulse 78 MON; Pulse Ox 96% ; kas2 22:15 BP 107 / 59; Pulse 78; Resp 18; Temp 97.9; Pulse Ox 98% on R/A; Pain 0/10; kas2 18:32 Body Mass Index 27.05 (92.99 kg, 185.42 cm) gr2 MDM: 18:55 ECG WITH READING ER PHYS+CARDIAG ordered. EDMS 19:06 Fingerstick Blood Sugar Ordered. EDMS 19:35 Insulation Applicator/Pulse Ox/q 15 min VS ordered. mm11 19:35 IV Saline Lock ordered. mm11 19:35 Orthostatic VS ordered. mm11 19:35 Rhythm Strip to chart ordered. mm11 19:35 Basic Metabolic Profile Ordered. EDMS 19:35 CBC with Diff Ordered. EDMS 19:35 Cardiac Injury Profile Ordered. EDMS 19:36 Thyroid Stimulating Hormone Ordered. EDMS 19:36 Troponin Ordered. EDMS 19:36 Urinalysis Ordered. EDMS 19:36 Urine Culture Ordered. EDMS 19:36 Chest, 1 View Ordered. EDMS 19:36 Tibia/Fibula Ordered. EDMS 19:36 CT Head Without Contrast Ordered. EDMS 19:39 Financial registration complete. zo 19:40 [facility] [place] Agreement was scanned into [employer] and attached to record. zo 20:31 Fingerstick Blood Sugar Reviewed. mm11 20:31 Basic Metabolic Profile Reviewed. mm11 20:31 CBC with Diff Reviewed. mm11 20:31 Cardiac Injury Profile Reviewed. mm11 20:31 Thyroid Stimulating Hormone Reviewed. mm11 20:31 Troponin Reviewed. mm11 20:35 NS 0.9% 1000 ml IV at bolus once ordered. mm11 21:05 Urinalysis Reviewed. mm11 21:05 CT Head Without Contrast Reviewed. mm11 21:07 BED REQUEST+ADM ordered. EDMS 21:14 Hemoglobin A1c Ordered. EDMS 21:51 Hemoglobin A1c Reviewed. mm11 21:57 Admission / Observation Status ordered. EDMS 21:57 ECHOCARD,DOPPLER/COLOR FLOW ordered. EDMS 21:57 ELECTROCARDIOGRAM ADULT ordered. EDMS 21:57 CONSISTENT CARBOHYDRATES ordered. EDMS 21:57 CBC WITH DIFFERENTIAL Ordered. EDMS 21:58 COMPLETE COMPHRENSIVE METABOLI Ordered. EDMS 21:58 MAGNESIUM LEVEL Ordered. EDMS 22:01 INFLUENZA A&B RAPID ANTIGEN Ordered. EDMS 22:03 CARDIAC MARKER PANEL Ordered. EDMS 22:03 IONIZED CALCIUM Ordered. EDMS 22:04 LIVER PROFILE Ordered. EDMS 22:05 MAGNESIUM LEVEL Ordered. EDMS 22:05 PATHOLOGIST REVIEW COMPREHENSI Ordered. EDMS 22:19 MRA BRAIN W/O CONTRAST Ordered. EDMS 22:19 MRI Brain without Contrast Ordered. EDMS 09/21 08:59 T-Sheet-- Draft Copy was scanned into [employer] and attached to record. gb 08:59 Trend VS was scanned into [employer] and attached to record. gb 08:59 Radiology Report was scanned into [employer] and attached to record. gb Administered Medications: 09/20 20:45 Drug: NS 0.9% 1000 ml [sodium chloride 0.9 % intravenous solution] Route: IV; Rate: kas2 bolus; Site: right forearm; Signatures: Dispatcher [employer] EDMS Geetha Anderson RN RN Fifi Cevallos, Reg Reg Ammon Lynch RN RN mlb1 Ann-Marie Escamilla Matthew, DO DO mm11 Bhavani Kline RN RN sls1 Esther Elias RN RN kas2 The chart was reviewed and I authenticate all verbal orders and agree with the evaluation and treatment provided.Corrections: (The following items were deleted from the chart) 22:02 22:01 LIVER PROFILE ordered. EDMS EDMS 22:04 22:02 MAGNESIUM LEVEL ordered. EDMS EDMS Attachments: 19:40 [facility] Payment Agreement zo 09/21 08:59 T-Sheet-- Draft Copy gb Chart Complete MTDD
--- NOTE | 2016-09-22 23:44 | EDDOCDS ---
Nurse's Notes [facility] Name: Ronnell Smallwood Age: 71 yrs Sex: Male : 1945 Arrival Date: 09/20/2016 Time: 18:30 Bed 11 Private MD: Annel Chester A Diagnosis: Syncope and collapse;Hypotension;Pancytopenia Presentation: 09/20 18:36 Presenting complaint: Patient states: Syncopal episode at home at 1430 today c/o pain mlb1 left knee. Adult Sepsis Screening: The patient does not have new or worsening altered mentation. Patient's respiratory rate is less than 22. Systolic blood pressure is greater than 100. Patient has a qSOFA score of 0- Negative Sepsis Screen. Suicide/Homicide risk assessment- the patient denies having any suicidal and/or homicidal ideations and does not present with any other emotional, behavioral or mental health complaints. Status: Patient is not a pharmacy services director or dependent. Transition of care: patient was not received from another setting of care. 18:36 Acuity: ANGEL Level 3 mlb1 18:36 Method Of Arrival: Walkin/Carried/Asstd mlb1 Triage Assessment: 18:39 General: Appears in no apparent distress, Behavior is appropriate for age, cooperative. mlb1 Pain: Location: lateral aspect of left knee Pain currently is 8 out of 10 on a pain scale. Neurological: Level of Consciousness is awake, alert, Oriented to person, place, time. Historical: - Allergies: no known allergies; - Home Meds: 1. aspirin 81 mg Oral TbEC once daily on hold 2. Drisdol 50,000 unit Oral cap every 2 weeks 3. Hyzaar 100-12.5 mg Oral tab 1 tab once daily 4. Tiazac 120 mg Oral cpER 1 cap once daily 5. vitamin b12 inj monthly 6. Vitamin B-6 100 mg Oral tab - PMHx: Anemia; Diabetes - NIDDM: controlled; Hypertension; Pyelonephritis; - PSHx: repair of stomach ulcers; - Social history: Smoking status: Patient states former smoker of tobacco. No barriers to communication noted, The patient speaks fluent Palauan, Speaks appropriately for age. - Family history: Not pertinent. - : The pt / caregiver states he / she is not on anticoagulants. Home medication list is obtained from the patient. - Exposure Risk Screening:: None identified. Screenin:41 Screening information is obtained from the patient. Fall risk: No risks identified. kas2 Assistance ADL's: requires no assistance with activities of daily living. Abuse/DV Screen: The patient / caregiver reports he/she is: not in a situation that causes fear, pain or injury. Nutritional screening: No deficits noted. Advance Directives: Currently, there is no health care proxy. There is no active DNR order. There is no living will. There is no Power of Counter Pocket Sewer. home support is adequate. Assessment: 19:35 General: Patient gone to CT scan via stretcher with tech.. kas2 19:40 General: Appears in no apparent distress, comfortable, well nourished, well groomed, kas2 Behavior is appropriate for age, cooperative. Pain: Denies pain. Neurological: Level of Consciousness is awake, alert, Oriented to person, place, time, Plug Machine Operator are equal bilaterally Moves all extremities. Speech is normal, Facial symmetry appears normal, Pupils are PERRLA. Cardiovascular: Capillary refill < 3 seconds Heart tones S1 S2 present Rhythm is sinus rhythm No ectopy. Respiratory: Airway is patent Respiratory effort is even, unlabored, Respiratory pattern is regular, symmetrical, Breath sounds are clear bilaterally. Derm: Skin is intact, is healthy with good turgor, Skin is dry, Skin temperature is warm. 20:14 General:. kas2 20:15 General: Patient back from CT scan via stretcher with tech. Resettled in bed. Patient kas2 denies pain or discomfort at this time. No apparent distress. Family at bedside. Call preciado within reach. Will continue to monitor.. 21:25 General: Patient laying in bed with family at bedside. No apparent distress noted. kas2 Patient denies pain or discomfort at this time. Airway patent and respiratory pattern even and unlabored. Call preciado within reach. Will continue to monitor.. 22:13 General: Appears in no apparent distress, comfortable, Behavior is appropriate for age, kas2 cooperative. Pain: Denies pain. Neurological: Level of Consciousness is awake, alert, Oriented to person, place, time. Cardiovascular: Capillary refill < 3 seconds Heart tones S1 S2 present Rhythm is sinus rhythm No ectopy. Respiratory: Airway is patent Respiratory effort is even, unlabored, Respiratory pattern is regular, symmetrical, Breath sounds are clear bilaterally. Derm: Skin is intact, is healthy with good turgor, Skin is dry, Skin temperature is warm. Vital Signs: 18:32 BP 95 / 59; Pulse 87; Resp 18 S; Temp 98.6(O); Pulse Ox 95% on R/A; Weight 92.99 kg gr2 (R); Height 6 ft. 1 in. (185.42 cm) (R); Pain 7/10; 18:42 BP 100 / 56 (auto/); kas2 18:45 Pulse 80 MON; Pulse Ox 95% ; kas2 18:45 Resp 18; Temp 98.2(O); Pain 0/10; kas2 18:57 BP 110 / 58 (auto/); kas2 18:57 Pulse 84 MON; Pulse Ox 93% ; kas2 19:12 BP 112 / 60 (auto/); kas2 19:12 Pulse 88 MON; Pulse Ox 96% ; kas2 19:27 BP 108 / 61 (auto/); kas2 19:27 Pulse 82 MON; Pulse Ox 96% ; kas2 19:42 BP 99 / 50 (auto/); kas2 19:42 Pulse 84 MON; Pulse Ox 94% ; kas2 19:57 BP 100 / 59 (auto/); kas2 19:57 Pulse 80 MON; Pulse Ox 93% ; kas2 20:12 BP 98 / 54 RA Supine; Pulse 77; Resp 18; Temp 96.2; Pulse Ox 92% on R/A; Pain 0/10; kas2 20:12 BP 83 / 53 RA Sitting; Pulse 86; Resp 18; Pulse Ox 94% on R/A; kas2 20:12 BP 87 / 54 RA Standing; Pulse 95; Resp 18; Pulse Ox 97% on R/A; kas2 20:12 BP 101 / 60 (auto/); kas2 20:12 Pulse 76 MON; Pulse Ox 93% ; kas2 20:27 BP 101 / 59 (auto/); kas2 20:27 Pulse 74 MON; Pulse Ox 99% ; kas2 20:42 BP 101 / 59 (auto/); kas2 20:42 Pulse 74 MON; Pulse Ox 92% ; kas2 20:57 BP 106 / 58 (auto/); kas2 20:57 Pulse 74 MON; Pulse Ox 96% ; kas2 21:12 BP 111 / 61 (auto/); kas2 21:12 Pulse 74 MON; Pulse Ox 95% ; kas2 21:27 BP 113 / 62 (auto/); kas2 21:27 Pulse 76 MON; Pulse Ox 96% ; kas2 21:42 BP 113 / 59 (auto/); kas2 21:42 Pulse 78 MON; Pulse Ox 98% ; kas2 21:57 BP 117 / 66 (auto/); kas2 21:57 Pulse 78 MON; Pulse Ox 98% ; kas2 22:12 BP 107 / 59 (auto/); kas2 22:12 Pulse 78 MON; Pulse Ox 96% ; kas2 22:15 BP 107 / 59; Pulse 78; Resp 18; Temp 97.9; Pulse Ox 98% on R/A; Pain 0/10; kas2 18:32 Body Mass Index 27.05 (92.99 kg, 185.42 cm) gr2 Vitals: 18:32 Log In Time: September 20, 2016 at 18:32. RN notified that patient meets Red Flag gr2 criteria. ED Course: 18:32 Patient visited by Gallito De Leon. gr2 18:32 Annel Chester is Private Physician. gr2 18:32 Patient moved to Waiting gr2 18:34 Patient visited by Gallito De Leon. gr2 18:34 Patient moved to Pre RCE gr2 18:35 Patient visited by Ammon Crane, MAGED. mlb1 18:37 Triage Initiated mlb1 18:39 Patient visited by Ammon Crane, RN. mlb1 18:40 Isaura Messer,RN is Primary Nurse. mlb1 18:40 Patient moved to 11 mlb1 18:59 Esther Elias,MAGED is Primary Nurse. kas2 19:05 Patient visited by Sukhwinder Hernandez PCA. jmv 19:05 EKG done. (by ED staff). Reviewed by Oz SANTORO. jmv 19:06 Patient visited by Sukhwinder Hernandez PCA. jmv 19:18 Bam Menard DO is Attending Physician. mm11 19:18 Patient visited by Bam Menard DO. mm11 19:31 Patient visited by Bam Menard DO. mm11 19:38 Basic Metabolic Profile Sent. kas2 19:38 CBC with Diff Sent. kas2 19:38 Cardiac Injury Profile Sent. kas2 19:38 Thyroid Stimulating Hormone Sent. kas2 19:39 Troponin Sent. kas2 19:40 [facility] Payment Agreement was scanned into [employer] and attached to record. zo 19:41 Patient visited by Esther Elias RN. kas2 19:41 Inserted saline lock: 20 gauge in right forearm and blood collected. The patient kas2 tolerated the procedure well. No procedures done that require assistance. 19:44 Patient name changed from Ronnell\S\\S\Chaple\S\ to Ronnell\S\ \S\Chaple. EDMS 20:16 Patient visited by Esther Elias RN. kas2 20:37 Urinalysis Sent. kas2 20:37 Urine Culture Sent. kas2 20:42 CT Head Without Contrast Returned. EDMS 21:12 Patient visited by Esther Elias RN. kas2 21:15 Patient visited by Esther Elias RN. kas2 21:18 Sebastien Santana MD is Hospitalizing Provider. mm11 21:44 Patient visited by Esther Elias RN. kas2 22:19 Patient visited by Esther Elias RN. kas2 22:29 The patient / caregiver is instructed regarding the plan of care and ED course. kas2 22:31 Patient visited by Esther Elias RN. [facility] 09/21 08:59 T-Sheet-- Draft Copy was scanned into [employer] and attached to record. gb 08:59 Trend VS was scanned into [employer] and attached to record. gb 08:59 Radiology Report was scanned into [employer] and attached to record. gb Administered Medications: 09/20 20:45 Drug: NS 0.9% 1000 ml [sodium chloride 0.9 % intravenous solution] Route: IV; Rate: kas2 bolus; Site: right forearm; Attachments: 08:59 Trend VS gb Order Results: Lab Order: Fingerstick Blood Sugar; SPEC'M 09/20/16 18:52 Test: BEDSIDE GLUCOSE; Value: 145; Range: 80-115; Abnormal: Above high normal; Units: MG/DL; Status: F Lab Order: Basic Metabolic Profile; SPEC'M 09/20/16 19:20 Test: GLUCOSE, FASTING; Value: 147; Range: 80-110; Abnormal: Above high normal; Units: MG/DL; Status: F Test: BLOOD UREA NITROGEN; Value: 38; Range: 7-18; Abnormal: Above high normal; Units: MG/DL; Status: F Test: CREATININE FOR GFR; Value: 1.70; Range: 0.70-1.30; Abnormal: Above high normal; Units: MG/DL; Status: F Test: GLOMERULAR FILTRATION RATE; Value: 51.8; Range: >49; Status: F Test: SODIUM LEVEL; Value: 142; Range: 136-145; Units: MEQ/L; Status: F Test: POTASSIUM SERUM; Value: 3.6; Range: 3.5-5.1; Units: MEQ/L; Status: F Test: CHLORIDE LEVEL; Value: 104; Range: 98-107; Units: MEQ/L; Status: F Test: CARBON DIOXIDE LEVEL; Value: 29; Range: 21-32; Units: MEQ/L; Status: F Test: ANION GAP; Value: 9; Range: 8-16; Units: MEQ/L; Status: F Test: CALCIUM LEVEL; Value: 7.9; Range: 8.8-10.2; Abnormal: Below low normal; Units: MG/DL; Status: F Test Note: ; Units are mL/min/1.73 m2 Chronic Kidney Disease Staging per NKF: Stage I & II GFR >=60 Normal to Mildly Decreased Stage III GFR 30-59 Moderately Decreased Stage IV GFR 15-29 Severely Decreased Stage V GFR <15 Very Little GFR Left ESRD GFR <15 on CAPTAIN/AIRLINE PILOT Test: AST/SGOT; Range: 15-37; Units: U/L; Status: I Test: ALT/SGPT; Range: 12-78; Units: U/L; Status: I Test: ALKALINE PHOSPHATASE; Range: 45-117; Units: U/L; Status: I Test: BILIRUBIN,TOTAL; Range: 0.2-1.0; Units: MG/DL; Status: I Test: BILIRUBIN,DIRECT; Range: 0.0-0.2; Units: MG/DL; Status: I Test: TOTAL PROTEIN; Range: 6.4-8.2; Units: GM/DL; Status: I Test: ALBUMIN; Range: 3.2-5.2; Units: GM/DL; Status: I Test: ALBUMIN/GLOBULIN RATIO; Range: 1.00-1.93; Status: I Lab Order: CBC with Diff; SPEC'M 09/20/16 19:20 Test: WHITE BLOOD COUNT; Value: 3.0; Range: 4.0-10.0; Abnormal: Below low normal; Units: K/mm3; Status: F Test: RED BLOOD COUNT; Value: 3.74; Range: 4.30-6.10; Abnormal: Below low normal; Units: M/mm3; Status: F Test: HEMOGLOBIN; Value: 12.0; Range: 14.0-18.0; Abnormal: Below low normal; Units: g/dl; Status: F Test: HEMATOCRIT; Value: 35.8; Range: 42.0-52.0; Abnormal: Below low normal; Units: %; Status: F Test: MEAN CORPUSCULAR VOLUME; Value: 95.7; Range: 80.0-96.0; Units: fl; Status: F Test: MEAN CORPUSCULAR HEMOGLOBIN; Value: 32.1; Range: 27.0-33.0; Units: pg; Status: F Test: MEAN CORPUSCULAR HGB CONC; Value: 33.5; Range: 32.0-36.5; Units: g/dl; Status: F Test: RED CELL DISTRIBUTION WIDTH; Value: 12.3; Range: 11.5-14.5; Units: %; Status: F Test: PLATELET COUNT, AUTOMATED; Value: 126; Range: 150-450; Abnormal: Below low normal; Units: k/mm3; Status: F Test: NEUTROPHILS %; Value: 45.1; Range: 36.0-66.0; Units: %; Status: F Test: LYMPH %; Value: 33.0; Range: 24.0-44.0; Units: %; Status: F Test: MONO %; Value: 16.3; Range: 0.0-5.0; Abnormal: Above high normal; Units: %; Status: F Test: EOS %; Value: 1.1; Range: 0.0-3.0; Units: %; Status: F Test: BASO %; Value: 0.6; Range: 0.0-1.0; Units: %; Status: F Test: LARGE UNSTAINED CELL %; Value: 3.8; Range: 0.0-4.0; Units: %; Status: F Test: NEUTROPHILS #; Value: 1.4; Range: 1.8-7.7; Abnormal: Below low normal; Units: K/mm3; Status: F Test: LYMPH #; Value: 1.1; Range: 1.5-4.5; Abnormal: Below low normal; Units: K/mm3; Status: F Test: MONO #; Value: 0.5; Range: 0.0-0.8; Units: K/mm3; Status: F Test: EOS #; Value: 0.0; Range: 0.0-0.50; Units: K/mm3; Status: F Test: BASO #; Value: 0.0; Range: 0.0-0.2; Units: K/mm3; Status: F Test: LARGE UNSTAINED CELL #; Value: 0.1; Range: 0.0-0.4; Units: K/mm3; Status: F Lab Order: Cardiac Injury Profile; [facility]' 09/20/16 19:20 Test: CPK CREATINE PHOSPHOKINASE; Value: 462; Range: 39-308; Abnormal: Above high normal; Units: U/L; Status: F Test: CK-MB VALUE MASS; Value: 2.5; Range: 0.0-3.6; Units: NG/ML; Status: F Test: MB/CK RELATIVE INDEX; Value: 0.54; Range: < OR =4; Status: F Test Note: ; DIAGNOSIS CRITERIA MMB ng/ml Relative Index (RI) NON-AMI < or = 5 N/A [place] > 5 < or = 4 AMI > 5 > 4 Lab Order: Thyroid Stimulating Hormone; [facility]' 09/20/16 19:20 Test: THYROID STIMULATING HORMONE; Value: 0.770; Range: 0.358-3.740; Units: uIU/ML; Status: F Lab Order: Troponin; SPEC' 09/20/16 19:20 Test: TROPONIN I; Value: < 0.02; Range: < 0.10; Units: NG/ML; Status: F Test Note: ; Troponin I Reference Interval for [employer] LOCI: 99th Percentile= 0.00-0.045 ng/ml Risk Stratification: <= 0.10 ng/ml Decreased Risk for Adverse Clinical Events. 0.10-1.50 ng/ml Increased Risk for Adverse Clinical Events. Evaluation of additional criterion and/or repeat testing in 2-6 hours is suggested to rule out myocardial damage. >= 1.50 ng/ml Indicative of Myocardial Injury. Lab Order: Urinalysis; SPEC'M 09/20/16 20:36 Test: APPEARANCE, URINE; Value: CLEAR; Range: CLEAR; Status: F Test: COLOR, URINE; Value: YELLOW; Range: YELLOW; Status: F Test: PH,URINE; Value: 5.0; Range: 5.0-9.0; Units: UNITS; Status: F Test: SPECIFIC GRAVITY URINE AUTO; Value: 1.012; Range: 1.002-1.035; Status: F Test: PROTEIN, URINE AUTO; Value: NEGATIVE; Range: NEGATIVE; Units: mg/dL; Status: F Test: GLUCOSE, URINE (UA) AUTO; Value: 3+; Range: NEGATIVE; Abnormal: Above high normal; Units: mg/dL; Status: F Test: KETONE, URINE AUTO; Value: NEGATIVE; Range: NEGATIVE; Units: mg/dL; Status: F Test: UROBILINOGEN, URINE AUTO; Value: 0.2; Range: 0.0-2.0; Units: mg/dL; Status: F Test: BILIRUBIN, URINE AUTO; Value: NEGATIVE; Range: NEGATIVE; Status: F Test: NITRITE, URINE AUTO; Value: NEGATIVE; Range: NEGATIVE; Status: F Test: LEUKOCYTE ESTERASE, URINE AUTO; Value: NEGATIVE; Range: NEGATIVE; Status: F Test: BLOOD, URINE BLOOD; Value: 1+; Range: NEGATIVE; Abnormal: Above high normal; Status: F Test: WBC, URINE AUTO; Value: 1; Range: 0-3; Units: /HPF; Status: F Test: RBC, URINE AUTO; Value: 3; Range: 0-3; Units: /HPF; Status: F Test: BACTERIA, URINE AUTO; Value: NEGATIVE; Range: NEGATIVE; Status: F Test: SQUAMOUS EPITHELIAL CELL UR AU; Value: 0; Range: 0-6; Units: /HPF; Status: F Test: MUCUS, URINE; Value: SMALL; Range: NEGATIVE; Status: F Test: HYALINE CAST, URINE AUTO; Value: 0; Range: 0-1; Units: /LPF; Status: F Lab Order: Hemoglobin A1c; SPEC'M 09/20/16 19:20 Test: HEMOGLOBIN A1c; Value: 7.5; Range: 4.5-6.2; Abnormal: Above high normal; Units: %; Status: F Test: ESTIMATED AVERAGE GLUCOSE; Value: 169; Range: 60-110; Abnormal: Above high normal; Units: MG/DL; Status: F Lab Order: LIVER PROFILE; SPEC'M 09/20/16 19:20 Test: AST/SGOT; Value: 47; Range: 15-37; Abnormal: Above high normal; Units: U/L; Status: F Test: ALT/SGPT; Value: 38; Range: 12-78; Units: U/L; Status: F Test: ALKALINE PHOSPHATASE; Value: 66; Range: 45-117; Units: U/L; Status: F Test: BILIRUBIN,TOTAL; Value: 0.8; Range: 0.2-1.0; Units: MG/DL; Status: F Test: BILIRUBIN,DIRECT; Value: 0.2; Range: 0.0-0.2; Units: MG/DL; Status: F Test: TOTAL PROTEIN; Value: 6.6; Range: 6.4-8.2; Units: GM/DL; Status: F Test: ALBUMIN; Value: 3.3; Range: 3.2-5.2; Units: GM/DL; Status: F Test: ALBUMIN/GLOBULIN RATIO; Value: 1.00; Range: 1.00-1.93; Status: F Lab Order: MAGNESIUM LEVEL; SPEC'M 09/20/16 19:20 Test: MAGNESIUM LEVEL; Value: 2.4; Range: 1.8-2.4; Units: MG/DL; Status: F Lab Order: PATHOLOGIST REVIEW COMPREHENSI; SPEC'M 09/20/16 19:20 Test: SLIDE REVIEW; Value: Report; Status: F Test: SOURCE; Value: PERIPHERAL SMEAR; Status: F Test: REASON FOR REVIEW; Value: PANCYTOPENIA; Status: F Test Note: ; Slide and/or specimen referred to Pathologist for review. Results of the review are located in the EMR Pathology module under Peripheral Smear when completed. Radiology Order: CT Head Without Contrast Test: CT Head Without Contrast REASON FOR EXAMINATION: Syncope; ; CLINICAL HISTORY: Syncope.; TECHNIQUE: Multiple axial CT images were obtained through the brain without IV contrast material.; COMMENTS:; There is normal configuration of sella turcica. There are no intra or extra-axial collections. There; is no mass effect or midline shift. There is no evidence of hematoma formation. No hydrocephalus is p; resent. The ventricles are symmetrical. Bilateral basal ganglia calcifications are present.; There is diffuse age-appropriate cerebellar and cerebral atrophy with proportionally dilated ventricl; es and cortical sulci.; There are bilateral periventricular and subcortical white matter hypolucencies compatible with mild c; hronic microvascular disease.; Otherwise, no significant focal abnormalities are seen either in the posterior fossa or supratentoria; l compartment.; IMPRESSION:; 1. Age-appropriate cerebellar and cerebral atrophy.; 2. Mild chronic microvascular disease.; 3. No evidence of acute intracranial pathology.; Thank you for your kind referral of this patient.; ; ; Outcome: 09/20 21:18 Decision to Hospitalize by Provider. mm11 22:29 Discharge Assessment: patient administered narcotics - no. The following High Risk [facility] Discharge criteria are identified: None. Admitted to PCU accompanied by nurse, accompanied by tech, via stretcher, on monitor, with chart. Condition: good Condition: stable Condition: improved. CT Study completed. Property :Personal belongings accompany Pt. 22:42 Patient left the ED. sls1 Signatures: Dispatcher [employer] EDMS Fifi Victoria, Ammon Yuan, RN RN mlb1 Ann-Marie Escamilla Matthew, DO DO mm11 Bhavani Kline RN RN sls1 Gallito De Leon gr2 Esther EliasRN RN kas2 Sukhwinder Hernandez, JANELLE HAIRSPRING STAKER jm Corrections: (The following items were deleted from the chart) 19:06 19:05 EKG done. (by ED staff). jmcolt jmcolt Chart Complete MTDD
--- NOTE | 2016-09-23 08:40 | DSES ---
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 HISTORY OF PRESENT ILLNESS: This is a 71-year-old male patient with underlying medical history of anemia, diabetes, hypertension, history of pyelonephritis, history of elevated prostate-specific antigen (PSA), had cold-like symptoms since Sunday, went to work, was unable to work on Sunday and Sunday because he felt weak and had subjective fever, cough, which he was treated with [id number] remedies. Awoke on Sunday morning, which he felt quite well. His car had been in repair shop, and he felt well enough to go get it. He has been eating and drinking normally, thinking that he can go to work. The patient works at night. Went to bed around 4 p.m. and usually gets up at 8:30 for his 9 p.m. shift. The patient went to the refrigerator to get a bottle of water, felt a little bit lightheaded. The next thing he knew, he woke up on the floor with the bottle of water right next to him. He does not know how long he was down. He did not remember falling. Afterwards, his memory seemed a little bit sketchy, but he got onto the couch. His returned at 6:15, and he was on the couch, which was unusual. No urinary or bowel incontinence. No tongue-biting. Reported left leg pain. Denies history of seizure. Denies chest pain, pressure, discomfort. Denies any fevers or chills. HOSPITAL COURSE: The patient was admitted to the hospital, placed on telemetry for monitoring. Cardiac enzymes were sent. Echocardiogram was done. Intravenous (IV) hydration was provided. The patient initially had elevated creatinine with acute kidney injury. Kidney function progressively improved. Blood pressure medication was held due to the patient orthostatic positive. Orthostatic vital signs were followed. Influenza was initially negative, but a respiratory panel came back today positive for influenza A. Blood culture has been negative. MRI and MRA was done. 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 The case was discussed with Dr. Evert Brown, orthopedic group. As per Dr. Evert Brown, based on the study, the changes seems to be chronic. Does not need any acute intervention at this point. Outpatient followup. Influenza returned positive. Subsequently, Tamiflu was sent to the pharmacy. The patient's blood pressure medication was adjusted. The patient continued to feel comfortable, ready to be discharged for further care as outpatient. The patient reported history of sickle cell trait, possible bone infarct and avascular necrosis due to sickle cell trait. VITAL SIGNS: Temperature 96.5, pulse 81, respiration 18, blood pressure 132/68, pulse oximetry 97% on room air. LABORATORY: WBC 2.1, hemoglobin and hematocrit 11.5/34.2, platelets 111. Chemistry: Sodium 145, potassium 3.7, chloride 109, bicarbonate 28, BUN 23, creatinine 1.16. DISCHARGE MEDICATIONS: - losartan 25 mg by mouth daily - Tamiflu 75 mg by mouth twice a day, ten capsules prescribed - vitamin C 500 mg by mouth daily - cyanocobalamin 1000 mcg by mouth intramuscular (IM) once a month - diltiazem 120 mg by mouth daily - Jardiance 25 mg by mouth daily - omeprazole 20 mg by mouth daily - pyridoxine 50 mg by mouth daily - Zocor 20 mg by mouth nightly - vitamin D 50,000 units by mouth every 2 weeks The patient's losartan and hydrochlorothiazide combination pill was discontinued. DISCHARGE INSTRUCTIONS: The patient instructed to followup with primary care provider in 7 days. Followup with orthopedic surgeon in 1-2 weeks. Return to the hospital if symptoms worsen.
== END 2016-09-22 16:00 | disposition home or self-care (01) | DRG 113 ==
LOC: M ED 18:30 → M ED INP 21:50 → M PCU 22:38
PROVIDERS: ADMIT Internal Medicine; ATTEND Hospitalist
DX: J10.1 Influenza due to other identified influenza virus with other respiratory manifestations (principal); N17.9 Acute kidney failure, unspecified; D61.818 Other pancytopenia; M90.562 Osteonecrosis in diseases classified elsewhere, left lower leg; M90.551 Osteonecrosis in diseases classified elsewhere, right thigh; E11.9 Type 2 diabetes mellitus without complications; I95.1 Orthostatic hypotension; D57.3 Sickle-cell trait; R97.20 Elevated prostate specific antigen [PSA]; Z79.899 Other long term (current) drug therapy; Z87.891 Personal history of nicotine dependence

== ENCOUNTER → 2017-04-13 | Outpatient (REF) | payer OTHER ==
[~2017-04-13] MED LIST changes: +BACT800T5 PO; +JANU100T PO; +JARD1TAB3 PO; -LOSA100T37 PO; +LOSA100T5 PO; +LOSA25TA8 PO; -METF1000 PO; +METF10004 PO; +OSEL75CA PO; +PYRI50TA7 PO; +TYLE650T35 PO
== END ==
LOC: M SMT 12:59
PROVIDERS: ATTEND Nurse Practitioner Women's Health
DX: Z01.812 Encounter for preprocedural laboratory examination (principal); N47.1 Phimosis

== ENCOUNTER → 2017-05-14 | Outpatient (CLI) | payer OTHER ==
--- NOTE | 2017-05-14 13:15 | ECGEPIP ---
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
== END ==
LOC: M EKG 12:38
PROVIDERS: ATTEND Nurse Practitioner Women's Health
DX: Z01.812 Encounter for preprocedural laboratory examination (principal); N47.1 Phimosis

== ENCOUNTER 2017-05-23 09:23 | Day surgery (SDC) | payer OTHER ==
[~2017-05-23] VITALS: Ht 185.4 cm; Wt 93.9 kg
[~2017-05-23 09:23] MED LIST changes: -BACT800T5 PO; +BUPIVACAINE HCL 0.25% 30 ML VIAL As Ordered ONE; +LIDOCAINE 1% SDV INJ 30 ML VIAL As Ordered ONE; +LIDOCAINE 2% INJ 100 MG/5 ML SDV (FOR ANES.) As Ordered ONE; +MIDAZOLAM INJ 2 MG/2 ML VIAL (J2250) As Ordered ONE; +PROPOFOL 200 MG/20 ML VIAL As Ordered ONE; -TYLE650T35 PO; +fentaNYL 100 MCG/2 ML INJECTION (J3010) As Ordered ONE
[2017-05-23] MEDS ORDERED: LR 1,000 ML IV ONE (09:30)
[2017-05-23] MEDS ORDERED: BACITRACIN OINT 30GM As Ordered ONE (09:31)
[2017-05-23] MEDS ORDERED: PROPOFOL 200 MG/20 ML VIAL As Ordered ONE (10:48)
[2017-05-23] MEDS ORDERED: ONDANSETRON 4MG/2ML VIAL (J2405) As Ordered ONE (10:48)
[2017-05-23] MEDS ORDERED: KETOROLAC 60 MG/2 ML VIAL (J1885) As Ordered ONE (11:15)
[2017-05-23] MEDS ORDERED: TYLE650T35 PO (11:28)
[2017-05-23] MEDS ORDERED: BACT800T5 PO (11:28)
[2017-05-23 12:45] VITALS: BP 144/76
--- NOTE | 2017-05-24 12:13 | RO ---
DATE OF PROCEDURE: 05/23/2017 PREPROCEDURE DIAGNOSIS: Phimosis. POSTPROCEDURE DIAGNOSIS: Phimosis. FINDINGS: Phimosis. PROCEDURE: Circumcision. SURGEON: Dr. Werner Quintero. PIPE SMOKING MACHINE OFFBEARER: None. ANESTHESIA: General. COMPLICATIONS: None. ESTIMATED BLOOD LOSS: N/A. HISTORY OF PRESENT ILLNESS: 72-year-old male patient with a history of phimosis and recurrent balanitis. For this reason, he has consented for a circumcision. PROCEDURE DESCRIPTION: With the patient under general anesthesia in supine position, after prepping and draping the area of concern which included the entire genitalia, we started by doing a penile block with Marcaine 0.25% and lidocaine 1%, a total of 10 mL in the base of the penis. We then proceeded to do a dorsal slit with Metzenbaum scissors and retracted for foreskin. We again prepped with Betadine and then placed a silk stitch #3-0 on top of the glans to actually serve as retraction. At that moment in time, we did an incision with a cold knife #15 blade 1 cm away from the sulcus of the glans circumferential incision. 4 cm closer toward the base of the penis, we made another circumferential incision. With Metzenbaum scissors, we excised the skin between both incisions. We then fulgurated with Bovie cautery all the bleeding vessels. At that moment in time, we placed stitches to approximate both borders of the skin with #3-0 Chromic in separate stitches. Once it was completed reapproximated, we placed bacitracin cream, Kerlix row and Coban. We then took the silk stitch out and put pressure on the glans. PLAN: The patient will go home with antibiotic and Tylenol for pain. He will be having the Coban and the bandages removed [facility] [facility]. He cannot have sexual intercourse for 1 month. MERLY
== END 2017-05-23 13:25 | disposition home or self-care (01) ==
LOC: M SDC 09:23
PROVIDERS: ATTEND Urology
DX: N47.1 Phimosis (principal); E11.9 Type 2 diabetes mellitus without complications; I10 Essential (primary) hypertension; E78.5 Hyperlipidemia, unspecified; E55.9 Vitamin D deficiency, unspecified; K21.0 Gastro-esophageal reflux disease with esophagitis; N13.2 Hydronephrosis with renal and ureteral calculous obstruction; H40.003 Preglaucoma, unspecified, bilateral; F52.21 Male erectile disorder; E04.1 Nontoxic single thyroid nodule; E53.8 Deficiency of other specified B group vitamins; D64.9 Anemia, unspecified; I49.9 Cardiac arrhythmia, unspecified; I65.29 Occlusion and stenosis of unspecified carotid artery; M12.9 Arthropathy, unspecified; M54.2 Cervicalgia; Q27.33 Arteriovenous malformation of digestive system vessel; N40.0 Benign prostatic hyperplasia without lower urinary tract symptoms; B35.1 Tinea unguium; Z79.899 Other long term (current) drug therapy; Z87.891 Personal history of nicotine dependence
CPT/HCPCS: 54161; 88304; J0690; J1885; J2250; J2405; J3010

== ENCOUNTER → 2017-05-31 | Outpatient (CLI) | payer OTHER ==
[~2017-05-31] MED LIST changes: +BACT800T5 PO; -BUPIVACAINE HCL 0.25% 30 ML VIAL As Ordered ONE; +ISOVUE-370 76% 100ML VIAL (Q9967) As Ordered ONE; -LIDOCAINE 1% SDV INJ 30 ML VIAL As Ordered ONE; -LIDOCAINE 2% INJ 100 MG/5 ML SDV (FOR ANES.) As Ordered ONE; -MIDAZOLAM INJ 2 MG/2 ML VIAL (J2250) As Ordered ONE; -PROPOFOL 200 MG/20 ML VIAL As Ordered ONE; +TYLE650T35 PO; -fentaNYL 100 MCG/2 ML INJECTION (J3010) As Ordered ONE
--- NOTE | 2017-06-01 05:55 | REP ---
Clinical: Abnormal chest x-ray findings. Technique: Axial contrast enhanced images from the thoracic inlet to the upper abdomen using 100 ml Isovue 370 intravenous contrast material with coronal and sagittal re-formations. Comparison: 01/04/2016. Findings: Lung vaughn demonstrate chronic-appearing interstitial changes and mild posterior basilar dependent changes. A few scattered noncalcified pulmonary nodules measuring between 2 and 5 mm are again identified and similar to prior examination. A 12 mm nodule in the deep right lateral sulcus (image 72) remains stable compared to 03/24/2015. No obvious, new, significant nodule or mass lesion is appreciated. No focal consolidation, pleural effusion or pneumothorax. Tracheobronchial tree is patent. Mediastinum demonstrates atherosclerotic changes to the thoracic aorta and coronary arteries without aortic aneurysm/dissection, cardiomegaly or pericardial effusion. 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 Impression: Lung vaughn demonstrate diffuse chronic age-related interstitial changes and mild dependent changes. Few scattered noncalcified nodules are again identified and similar to prior examination. No new acute mediastinal or pleuroparenchymal process identified. Signed by Daniel Rosario MD 06/01/2017 05:46 A
== END ==
LOC: M RAD 17:15
PROVIDERS: ATTEND Family Medicine
DX: J98.4 Other disorders of lung (principal); R91.8 Other nonspecific abnormal finding of lung field
CPT/HCPCS: 71260; Q9967

== ENCOUNTER → 2017-06-19 | Outpatient (CLI) | payer OTHER ==
[~2017-06-19] MED LIST changes: -ISOVUE-370 76% 100ML VIAL (Q9967) As Ordered ONE
== END ==
LOC: M SMT 08:57
PROVIDERS: ATTEND Urology
DX: N42.32 Atypical small acinar proliferation of prostate (principal)

== ENCOUNTER → 2018-06-12 | Outpatient (CLI) | payer OTHER ==
[2018-06-15 00:06] LABS: PSA % FREE 28.9 % (.); PSA FREE 2.34 ng/mL; PSA TOTAL 8.1 ng/mL (0.0-4.0)
== END ==
LOC: M SMT 14:28
DX: R39.9 Unspecified symptoms and signs involving the genitourinary system (principal)
CPT/HCPCS: 84154

== ENCOUNTER → 2018-06-18 | Outpatient (CLI) | payer OTHER | LOC: M RAD 15:50 | DX: N40.1 Benign prostatic hyperplasia with lower urinary tract symptoms (principal); N13.8 Other obstructive and reflux uropathy; R39.0 Extravasation of urine | CPT/HCPCS: 76857 ==

== ENCOUNTER → 2020-08-17 | Outpatient (CLI) | payer MEDICARE, OTHER ==
[~2020-08-17] MED LIST changes: +ACET650T61 PO; -DILT120C82 PO; +DILT1CAP PO; -DRIS50002 PO; +DRIS50003 PO; +LOSA25TA14 PO; -LOSA25TA8 PO; +OMEP1CAP73 PO; -OMEP20CA3 PO; -PYRI25TA3 PO; +PYRI25TA4 PO; -PYRI50TA7 PO; +PYRI50TA8 PO; -SIMV20TA2 PO; +SIMV20TA22 PO; -TYLE650T35 PO
--- NOTE | 2020-08-17 08:42 | REP ---
INDICATION: /Nontoxic THYROID NODULE . COMPARISON: Thyroid ultrasound dated 06/24/2019. TECHNIQUE: Thyroid ultrasound. FINDINGS: On the comparison study there were 2 solid nodules in the thyroid left lobe, 1 measuring up to 9 mm in the other measuring up to 4 mm. On the study today the thyroid gland is upper normal size. The thyroid right lobe measures 4.8 x 1.7 x 1.4 cm. The thyroid left lobe measures 4.9 x 1.6 x 1.2 cm. The isthmus measures 2.8 mm thickness. The thyroid parenchyma in the right and left lobes is mildly heterogeneous. There is a nodule at the junction of the isthmus and left lobe measuring 1.5 x 0.7 cm. This appears to be a solid nodule. The center of this nodule appears slightly echo lucent. Given the nodule size, ultrasound-guided needle aspiration biopsy is recommended. No other thyroid nodules or masses are identified. IMPRESSION: There is a 1.5 x 0.7 cm solid nodule at the junction of the isthmus and left lobe. The center of this nodule is slightly echo lucent. Given the size of this nodule ultrasound-guided needle aspiration biopsy is recommended. <Electronically signed by Acosta Linda > 08/17/20 [id number]
--- NOTE | 2020-08-17 10:03 | REP ---
INDICATION: LT KNEE PAIN ? MENISCUS TEAR / THYROID NODULE MR 1ST US 2ND. COMPARISON: Comparison radiographs September 20, 2016. Comparison left knee MRI study September 21, 2016.. TECHNIQUE: Axial, coronal, and sagittal imaging planes utilized. T1, proton density, and T2 weighted scans are included with without fat saturation in the usual fashion. 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 These are unchanged from the 2017 prior study. There is no evidence of adjacent marrow edema other evidence to suggest an aggressive lesion. Cortical and medullary bone signal intensity are otherwise normal. There is a small amount of suprapatellar bursal joint fluid. No Virgen's cyst is visible. Patellar and quadriceps tendons are intact. Old disruption of the anterior cruciate ligament is again seen. The posterior cruciate ligament appears intact. Is somewhat thickened. There is no evidence of medial or lateral collateral ligament disruption. The medial meniscus is quite diminutive with heterogeneous signal intensity in the remaining meniscal material similar to the prior study consistent with an old medial meniscal tear. No lateral meniscal tear is appreciated. There is moderate medial compartment chondromalacia with articular cartilage irregularity and heterogeneous signal intensity but no full-thickness articular cartilage lesion is seen. Mild chondromalacia in the patellofemoral compartment. The medial compartment chondromalacia appears more pronounced than on the 2017 prior study. IMPRESSION: Old medial meniscal tear and anterior cruciate ligament tear is again seen. Progression in chondromalacia in the medial compartment consistent with mild osteoarthritis. Small amount of joint fluid. 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 <Electronically signed by Nick Madrigal > 08/17/20 1000
== END ==
LOC: M RAD 07:31
PROVIDERS: ATTEND Family Medicine
DX: S83.204D Other tear of unspecified meniscus, current injury, left knee, subsequent encounter (principal); X58.XXXD Exposure to other specified factors, subsequent encounter; Y92.9 Unspecified place or not applicable; E04.1 Nontoxic single thyroid nodule

== ENCOUNTER → 2020-09-22 | Outpatient (CLI) | payer OTHER ==
[~2020-09-22] MED LIST changes: +PROHANCE 279.3MG/ML 15ML VIAL As Ordered ONE; +PROHANCE 279.3MG/ML 5ML VIAL As Ordered ONE
--- NOTE | 2020-09-22 16:03 | REP ---
INDICATION: ELEVATED PROSTATE SPECIFIC ANTIGEN. COMPARISON: 09/11/2016. TECHNIQUE: Using a phased array surface coil, small nrcir-hd-mhii imaging was acquired using T2 weighted scans in the axial, coronal, and sagittal imaging planes. Small lcxea-jn-okke diffusion-weighted sequences are acquired. Small bzprw-cv-nuil axial T1 weighted scans are acquired dynamically before and after the intravenous administration of 17 mL of ProHance. Imaging is reviewed using the [employer] computer-aided detection system. 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 No other bone lesion is seen. I see no adenopathy in the pelvis. Penile implant is noted. Prostate is enlarged measuring 5.7 by 4.5 x 5.8 cm, total volume is 72.8 cc. Diffuse nodular mixed signal is seen throughout the prostate compatible with benign prostatic hypertrophy. Seminal vesicles appear unremarkable. Two regions of interest are identified for MR ultrasound fusion biopsy. In the left mid transitional zone and apical transitional zone there is an area of mixed low signal on T2 weighted images and diffusion-weighted images with areas of type 3 enhancement. The area measures 3.0 x 1.5 x 3.1 cm for total volume of 8.81 cc. Overall level of suspicion is 3/5 with clinically significant cancer equivocal. In the right mid posterior transitional zone a similar appearing area of mixed low signal on T2 and diffusion-weighted images demonstrates areas of type 3 enhancement. The area measures 1.8 x 1.0 x 2.8 cm. Total volume of 3.05 cc. Overall level of suspicion is 3/5 with clinically significant cancer equivocal. IMPRESSION: Enlarged prostate. Two regions of interest are identified for potential MR ultrasound fusion guided biopsy. <Electronically signed by Acosta Marion > 09/22/20 [id number]
== END ==
LOC: M RAD 12:54
PROVIDERS: ATTEND Urology
DX: R97.20 Elevated prostate specific antigen [PSA] (principal); N40.0 Benign prostatic hyperplasia without lower urinary tract symptoms; M87.051 Idiopathic aseptic necrosis of right femur
CPT/HCPCS: 72197; A9576

== ENCOUNTER → 2020-09-23 | Outpatient (REF) | payer OTHER ==
[~2020-09-23] MED LIST changes: -PROHANCE 279.3MG/ML 15ML VIAL As Ordered ONE; -PROHANCE 279.3MG/ML 5ML VIAL As Ordered ONE
== END ==
LOC: M LAB REF 17:12
PROVIDERS: ATTEND Internal Medicine Endocrinology, Diabetes & Metabolism
DX: E04.1 Nontoxic single thyroid nodule (principal)

== ENCOUNTER → 2020-10-05 | Outpatient (CLI) | payer OTHER ==
--- NOTE | 2020-10-05 15:45 | REPPI ---
INDICATION: ELEVATED PSA. COMPARISON: Recent MRI findings 22 September 2020.. TECHNIQUE: Transrectal prostate sonography. FINDINGS: Transrectal sonographic guidance is provided to Dr. Taylor who performed trans rectal ultrasound guided needle biopsy procedure. IMPRESSION: Transrectal prostate sonographic guidance as above. <Electronically signed by Nick Madrigal > 10/05/20 [id number]
== END ==
LOC: M SMT PRO 09:35
PROVIDERS: ATTEND Urology
DX: R97.20 Elevated prostate specific antigen [PSA] (principal)
CPT/HCPCS: 76942; G0416

== ENCOUNTER 2022-02-20 09:41 | Emergency (ER) | payer OTHER ==
[~2022-02-20] VITALS: Ht 185.4 cm; Wt 90.9 kg
[~2022-02-20 09:41] MED LIST changes: +LOSA25TA13 PO; -LOSA25TA14 PO
[2022-02-20] MEDS ORDERED: LISI20TA33 (09:59)
[2022-02-20] MEDS ORDERED: HYDR12.55 (09:59)
[2022-02-20] MEDS ORDERED: EZET10TA21 (09:59)
[2022-02-20] MEDS ORDERED: GABA-1171 (09:59)
[2022-02-20] MEDS ORDERED: TRUL0.5I (09:59)
[2022-02-20] MEDS ORDERED: PYRI50TA40 (09:59)
[2022-02-20] MEDS ORDERED: TIAZ1CAP2 (09:59)
[2022-02-20] MEDS ORDERED: FINA5TAB2 (09:59)
[2022-02-20] MEDS ORDERED: traMADol 50 MG TAB PO ONE (11:20)
[2022-02-20 12:17] VITALS: BP 141/82
[2022-02-20] MEDS ORDERED: TRAM50TA2 PO (12:21)
== END 2022-02-20 12:29 | disposition home or self-care (01) ==
LOC: M ED 09:41
DX: M25.512 Pain in left shoulder (principal); E11.9 Type 2 diabetes mellitus without complications; E78.5 Hyperlipidemia, unspecified; I10 Essential (primary) hypertension; Z79.84 Long term (current) use of oral hypoglycemic drugs; Z88.6 Allergy status to analgesic agent

== ENCOUNTER 2022-03-09 19:20 | Emergency (ER) | payer OTHER ==
[~2022-03-09] VITALS: Ht 185.4 cm; Wt 89.1 kg
[~2022-03-09 19:20] MED LIST changes: +EZET10TA21; +FINA5TAB2; +GABA-1171; +HYDR12.55; +LISI20TA33; +PYRI50TA40; +TIAZ1CAP2; +TRAM50TA2 PO; +TRUL0.5I
[2022-03-09 19:21] VITALS: BP 150/66
== END 2022-03-09 23:48 | disposition left against medical advice (07) ==
LOC: M ED 19:20
DX: Z53.21 Procedure and treatment not carried out due to patient leaving prior to being seen by health care provider (principal)

== ENCOUNTER → 2022-05-23 | Outpatient (CLI) | payer OTHER ==
[~2022-05-23] MED LIST changes: -HYZA50TA2 PO; +LOSA-532 PO
== END ==
LOC: M RAD 09:58
PROVIDERS: ATTEND Family Medicine
DX: E04.1 Nontoxic single thyroid nodule (principal)

== ENCOUNTER → 2022-12-20 | Outpatient (CLI) | payer MEDICARE, OTHER ==
[~2022-12-20] MED LIST changes: +PROHANCE 279.3MG/ML 5ML VIAL ONE
== END ==
LOC: M PLAIMG 08:22
PROVIDERS: ATTEND Urology
DX: R97.20 Elevated prostate specific antigen [PSA] (principal)
CPT/HCPCS: 72197; A9576

== ENCOUNTER → 2022-12-26 | Outpatient (REF) | payer OTHER ==
[~2022-12-26] MED LIST changes: -PROHANCE 279.3MG/ML 5ML VIAL ONE
== END ==
LOC: M SMT 10:13
PROVIDERS: ATTEND Urology
DX: R97.20 Elevated prostate specific antigen [PSA] (principal)

== ENCOUNTER → 2023-05-23 | Outpatient (CLI) | payer OTHER ==
[~2023-05-23] MED LIST changes: +DILT120C41 PO; -DILT1CAP PO
== END ==
LOC: M RAD 11:02
PROVIDERS: ATTEND Family Medicine
DX: E04.1 Nontoxic single thyroid nodule (principal)

== ENCOUNTER → 2024-05-29 | Outpatient (CLI) | payer MEDICARE, OTHER | LOC: M WHC 08:35 | PROVIDERS: ATTEND Family Medicine | DX: M81.0 Age-related osteoporosis without current pathological fracture (principal) ==

== ENCOUNTER 2025-04-09 02:49 | Emergency (ER) | payer OTHER ==
[~2025-04-09] VITALS: Ht 185.4 cm; Wt 90.9 kg
[~2025-04-09 02:49] MED LIST changes: +FERR300L12 PO; -FERR5MLUD PO
[2025-04-09 03:48] LABS: BASO # 0.0 10^3/uL (0.0-0.2); BASO % 0.3 % (0.0-1.0); EOS # 0.0 10^3/uL (0.0-0.5); EOS % 0.2 % (0.0-3.0); LYMPH # 1.1 10^3/uL (1.5-5.0); LYMPH % 11.4 % (24.0-44.0); MONO # 1.2 10^3/uL (0.0-0.8); MONO % 12.7 % (2.0-8.0); NEUTROPHILS # 7.2 10^3/uL (1.5-8.5); NEUTROPHILS % 75.0 % (36.0-66.0)
[2025-04-09] MEDS: ACETAMINOPHEN 325 MG TAB PO ONE (04:03)
[2025-04-09] MEDS: NS (Normal Saline) 0.9% 1,000 ML IV ONE (04:03)
[2025-04-09] MEDS: IBUPROFEN 600 MG TAB PO ONE (04:03)
[2025-04-09 04:05] LABS: PLATELET COUNT, AUTOMATED 101 10^3/uL (150-450)
[2025-04-09 04:13] LABS: ALT/SGPT 23.0 U/L (7.0-40); AST/SGOT 38.0 U/L (<34); CALCIUM LEVEL 8.4 MG/DL (8.3-10.6); CARBON DIOXIDE LEVEL 25.0 MMOL/L (20-31); CHLORIDE LEVEL 104.0 MMOL/L (98-107); CK-MB VALUE MASS 2.0 NG/ML (<3.6); CREATININE FOR GFR 1.24 MG/DL (0.70-1.30); GLOMERULAR FILTRATION RATE 59.5 (>42); POTASSIUM SERUM 4.7 MMOL/L (3.5-5.1); SODIUM LEVEL 141.0 MMOL/L (136-145)
[2025-04-09 04:32] LABS: CPK CREATINE PHOSPHOKINASE 274.0 U/L (46-171); MB/CK RELATIVE INDEX 0.72 (< OR =4)
[2025-04-09 05:22] LABS: CK-MB VALUE MASS 2.3 NG/ML (<3.6)
[2025-04-09 05:25] LABS: CPK CREATINE PHOSPHOKINASE 303.0 U/L (46-171); MB/CK RELATIVE INDEX 0.75 (< OR =4)
[2025-04-09 05:44] LABS: C REACTIVE PROTEIN QUANTITATIV 9.96 MG/DL (<1.0)
[2025-04-09 05:53] LABS: KETONE, URINE AUTO RFX NEGATIVE (NEGATIVE); LEUKOCYTE ESTERASE UR AUTO RFX NEGATIVE (NEGATIVE); NITRITE, URINE AUTO RFX NEGATIVE (NEGATIVE); RBC, URINE AUTO RFX 1 /HPF (0-3); SQUAM EPITHELIAL CELL UR AURFX 1 /HPF (0-6); WBC, URINE AUTO RFX 0 /HPF (0-3)
[2025-04-09 07:30] VITALS: BP 99/53
[2025-04-09 07:32] VITALS: TEMP 97.8; O2SAT 95
== END 2025-04-09 08:06 | disposition home or self-care (01) ==
LOC: M ED 02:49
DX: R50.9 Fever, unspecified (principal); E11.9 Type 2 diabetes mellitus without complications; I10 Essential (primary) hypertension; E78.5 Hyperlipidemia, unspecified; K21.9 Gastro-esophageal reflux disease without esophagitis; E55.9 Vitamin D deficiency, unspecified; Z79.1 Long term (current) use of non-steroidal anti-inflammatories (NSAID); Z79.4 Long term (current) use of insulin; Z79.899 Other long term (current) drug therapy